=== PATIENT | female | born 1965 | race Caucasian/White ===

== ENCOUNTER 2024-12-06 08:31 | Outpatient (CLI) | payer OTHER, SELFPAY ==
--- OUTSIDE RECORDS SUMMARY | 2024-12-06 08:41 | XMS_ITS | Encounter Summary ---
Author Organization [facility] Facility Care Team Providers Care Route Carrier Name Role Phone Arvind Billingsley MD Primary Care Provider + Arvind Billingsley MD Primary Care Provider + Jeanne Blackwell MD Unavailable Encounter Details Date Type Department Care Team (Latest Contact Info) Description 01/28/2016 Orders Only [facility] ProviderTavia MD [address] [place] [address] Social History Tobacco Use Types Packs/Day Years Used Date Smoking Tobacco: Never Comments Unknown Sex and Gender Information Value Date Recorded Sex Assigned at Not on file 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 Historical Provider Final Res ult documented in this encounter Visit Diagnoses Not on filedocumented in this encounter Care Teams Route Carrier Relationship Specialty Start Date End Date Arvind Billingsley MD [address] [place] [address] PCP - General 05/15/17 Arvind Billingsley MD [address] [place] [address] PCP - General 03/07/17 05/14/17 Jeanne Blackwell MD [address] [address] Referring Physician Gynecology 11/11/22 documented as of this encounter
--- OUTSIDE RECORDS SUMMARY | 2024-12-06 08:41 | XMS_ITS | Clinical Summary ---
Author Organization [facility] Address [facility] [place] [address] Care Team Providers Care Hiv Nurse Name Role Phone Arvind Billingsley MD Primary Care Provider [phone] Allergies Active Allergy Reactions Criticality Noted Date Comments Penicillins Rash,Unknown Medium 06/16/2012 Medications lisinopril-hydroC HLOROthiazide (ZESTORETIC) 20-25 MG tabletIndications :Hypertension Take 1 tablet by mouth daily. Indications: High Blood Pressure Disorder 10/17/19 22 Active nortriptyline (PAMELOR) 75 MG capsule TAKE 2 CAPSULES (150 MG TOTAL) BY MOUTH NIGHTLY FOR MIGRAINES 10/03/19 22 Active pantoprazole EC (PROTONIX) 40 MG tabletIndications :Gastroesophageal Reflux Disease Take 1 tablet (40 mg total) by mouth daily. Indications: Gastroesophageal Reflux Disease 11/21/19 22 Active magnesium oxide (MAG-OX) 400 (240 Mg) MG tabletIndications :Vitamin and/or Mineral Deficiency Take 1 tablet (400 mg total) by mouth daily. Indications: Vitamin and/or Mineral Deficiency 02/05/20 22 Active aspirin EC (ECOTRIN) 81 MG tablet Take 1 tablet (81 mg total) by mouth daily. Active vitamin B-12 (CYANOCOBALAMIN) 500 MCG tablet Take 500 mcg by mouth daily. Active diclofenac EC (VOLTAREN) 75 MG tabletIndications :Primary osteoarthritis of left knee TAKE 1 TABLET BY MOUTH TWICE A DAY 60 tablet 1 05/25/19 23 Active cephALEXin (KEFLEX) 500 MG capsuleIndication s:S/P TKR (total knee replacement), left Take 1 capsule 30 minutes prior to dental procedure, then take 1 capsule every 6 hours until gone #6 6 capsule 12/13/20 23 Active cephALEXin (KEFLEX) 500 MG capsuleIndication s:S/P TKR (total knee replacement), left,Prophylactic antibiotic TAKE ONE (1) 500MG CAPSULE 30-60 MINUTES PRIOR TO DENTAL PROCEDURE/APPOINTME NT. THEN TAKE ONE (1) CAPSULE EVERY SIX (6) HOURS UNTIL GONE. 5 capsule 09/07/19 24 Active cephALEXin (KEFLEX) 500 MG capsule TAKE ONE (1) 500MG CAPSULE 30-60 MINUTES PRIOR TO DENTAL PROCEDURE/APPOINTME NT. THEN TAKE ONE (1) CAPSULE EVERY SIX (6) HOURS UNTIL GONE. 5 capsule 12/29/19 24 Active Active Problems Problem Noted Date Diagnosed Date Postoperative stitch abscess 03/14/2022 Assessment & Plan (03/14/2022 1:23 PM CDT): Begin doxycycline. If no significant improvement over the next 5 days call for reevaluation. Otherwise, we will see her at the 6-week follow-up visit. S/P TKR (total knee replacement), left Overview (02/17/2022): 02/02/2022 Assessment & Plan (08/19/2022 2:26 PM CDT): Will see her back if she is having issues. 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 Happy with her result so far. Follow-up in 3 months. Assessment & Plan (03/14/2022 1:23 PM CDT): Continue with progressive range of motion and strengthening per total knee arthroplasty protocol. Follow-up in 6 weeks Assessment & Plan (02/17/2022 10:07 AM CDT): Continue with progressive range of motion and strengthening per total knee arthroplasty protocol. Patient is transitioning from walker to cane. Transition to outpatient physical therapy at [facility] in [place]. Follow-up in 4 weeks for repeat evaluation and x-ray Primary osteoarthritis of left knee 12/27/2021 Assessment & Plan (01/14/2022 1:38 PM CDT): We discussed the risks, benefits and alternatives. The only thing proven to slow the progression of osteoarthritis is weight loss. Every pound lost relieves 4 to 6 pounds of stress across the knee. We discussed unloading braces. Formal physical therapy to help with flexibility, mobility and strength. We discussed TENS units. Nonsteroidal anti-inflammatories as well as Tylenol and pain medication and their side effects. We discussed steroid versus Visco supplement injection. We discussed eventual total knee arthroplasty. We discussed the risks, benefits and alternatives. We discussed custom cutting blocks, standard instrumentation and medical robot-assisted total knee arthroplasty. We will work with the [employer] robot support line to see if we can get this approved. I do believe there is benefit to Alfredo robot assisted arthroplasty and utilizing press-fit components in a 56-year-old female. All questions were answered. Assessment & Plan (12/27/2021 10:01 PM CDT): We discussed the risks, benefits and alternatives. The only thing proven to slow the progression of osteoarthritis is weight loss. Every pound lost relieves 4 to 6 pounds of stress across the knee. We discussed unloading braces. Formal physical therapy to help with flexibility, mobility and strength. We discussed TENS units. Nonsteroidal anti-inflammatories as well as Tylenol and pain medication and their side effects. We discussed steroid versus Visco supplement injection. We discussed eventual total knee arthroplasty. Failed ibuprofen Failed meloxicam Failed diclofenac Failed physical therapy Failed steroid injection Failed viscosupplementation Pain is interfering with her activities of daily living [id number] on x-ray We discussed standard instrumentation, patient specific cutting blocks and Alfredo robot assisted total knee arthroplasty. After going over the risks, benefits and alternatives patient wants to proceed with Alfredo robot assisted total knee arthroplasty on the left BMI 40.0-44.9, adult 12/27/2021 Assessment & Plan (01/14/2022 1:38 PM CDT): Continue with weight loss Assessment & Plan (12/27/2021 10:00 PM CDT): We discussed the adverse effects of weight on osteoarthritis of the knee. For every 1 pound loss, 4 to 6 pounds of stress is relieved from the knee. We discussed low carbohydrate diet to help with weight loss. 80% of weight loss is through diet. Encounters Date Type Department Care Team Description 10/25/2024 10:56 AM CDT - 10/25/2024 11:59 PM CDT Hospital Encounter [facility] [place] [address] [place] [address] Jeanne Blackwell MD Discharge Disposition: Home or Self Care (Routine Discharge) 10/25/2024 9:25 AM CDT - 10/25/2024 10:55 AM CDT Hospital Encounter [facility] Outpatient [place] [address] Yael Crawford MD Dichsen, Stacie L, PT Discharge Disposition: Home or Self Care (Routine Discharge) 10/25/2024 Travel 09/26/2024 6:26 PM CDT - 09/26/2024 11:59 PM CDT Hospital Encounter [facility] [address] [place] [address] Candi Meza MD Discharge Disposition: Home or Self Care (Routine Discharge) 09/26/2024 Orders Only [facility] [address] [place] [address] Candi Meza MD 09/13/2024 10:24 AM CDT - 09/13/2024 11:59 PM CDT Hospital Encounter [facility] Outpatient [place] [address] [place] [address] Yael Crawford MD Dichsen, Stacie L, PT Discharge Disposition: Home or Self Care (Routine Discharge) 09/13/2024 Travel from Last 3 Months Family History Medical History Relation Comments Arthritis Mother Relation Status Comments Mother Social History Tobacco Use Types Packs/Day Years Used Date Smoking Tobacco: Never Smokeless Tobacco: Never Tobacco Cessation:Counseling Given: Not Answered Comments:na Alcohol Use Standard Drinks/Week Comments Never 0 (1 standard drink = 0.6 oz pur e alcohol) PHQ-2 Answer Date Recorded PHQ-2 Score - If the patient scores above 3, please move on to questions 3-9 0 03/11/2022 Comments No Sex and Gender Information Value Date Recorded Sex Assigned at Female 10/04/2024 11:53 AM CDT Legal Sex Female 7:01 PM CDT Gender Identity Not on file Sexual Orientation Not on file Last Filed Vital Signs Vital Sign Reading Time Taken Comments Blood Pressure 158/91 08/19/2022 1:37 PM CDT Pulse 92 08/19/2022 1:37 PM CDT Temperature 36.3 C (97.3 F) 08/19/2022 1:37 PM CDT Respiratory Rate 18 08/19/2022 1:37 PM CDT Oxygen Saturation 100% 08/19/2022 1:37 PM CDT Inhaled Oxygen Concentration - - Weight 121.5 kg (267 lb 12.8 oz) 08/19/2022 1:37 PM CDT Height 167.6 cm (5' 6) 08/19/2022 1:37 PM CDT Body Mass Index 43.22 08/19/2022 1:37 PM CDT Plan of Treatment Upcoming Encounters Date Type Department Care Team (Late st Contact Info) Description 12/06/2024 10:00 AM CDT Appointment [facility] Outpatient [place] [address] [place] [address] Yael Crawford MD [address] [facility] [address] [place] [address] Aarti Simpson, [place] [address] Health Maintenance Due Date Last Done Comments Colorectal Cancer Screening Colonoscopy (10 Years) 1966 Annual Physical 1969 Hepatitis C 1984 DTaP, Tdap and Td Vaccines (1 - Tdap) 1985 Hepatitis B Vaccines (1 of 3 - 19+ 3-dose series) 1985 Pneumococcal Vaccine: 50+ Years (1 of 1 - PCV) 2016 Cervical Cancer Screening Pap Smear (Age 30 to 64) Every 3 Years 02/18/2020 02/17/2017 Cervical Cancer Screening Pap with HPV Testing (Age 30 to 64) Every 5 Years 02/17/2022 02/17/2017 Cervical Cancer Screening with HPV 02/17/2022 COVID-19 Vaccine ( season) 2024 10/13/2021, 02/11/2021, 05/23/2020, Additional history exists PHQ-2 (Physician [place]) 05/16/2024 Mammogram Screening 10/06/2026 10/06/2024, 08/25/2023, 08/19/2022, Additional history exists Zoster Vaccines Completed 10/01/2018, 07/30/2018 Meningococcal B Vaccine Aged Out No l onger eligible based on patient's age to complete this topic Meningococcal Vaccine Aged Out No danilo skylar eligible based on patient's age to complete this topic RSV Immunizations Under 20 Months Aged Out No longer eligible based on patient's age to complete this topic Goals Goal Patient Goal Type Associated Problems Recent Progress Patient-Stated? Author Safety - demonstrates understanding of home safety measures Lifestyle No Jannet Oh RN Medical Devices Implanted Type Area Industrial Furnace Fabricator Device Identifier Shelf Expiration Date Model / Serial / Lot Component Femoral Triathlon [employer] - [id number] Implanted:Qty : 1 on 02/02/2022 by Jerry Dial DO at [facility] Knee Components Left: Femur [employer] DIV [employer] [id number] 12/24/2026 5517-F-4 01 / / [id number] Baseplate Tibial Triathlon 4 Knee Tritanium - [id number] Implanted:Qty : 1 on 02/02/2022 by Jerry Dial DO at [facility] Knee Components Left: Tibia [employer] DIV [employer] DESIREE [id number] 10/07/2026 5536-B-4 00 / / [id number] Component Patellar 9mm 29mm Asymmetric Triathlon Tritanium Metal Knee Sterile - [id number] Implanted:Qty : 1 on 02/02/2022 by Jerry Dial DO at [facility] Patella Left: Patella [employer] DIV [employer] DESIREE [id number] 12/23/2025 5552-L-2 99 / / [id number] Triathlon X3 Tibial Bearing Insert- Cs Implanted:Qty : 1 on 02/02/2022 by Jerry Dial DO at [facility] Left: Tibia [id number] 10/18/2026 5531-G-4 09-E / / [id number] Procedures Procedure Name Priority Date/Time Associated Diagnosis Comments US PELVIC NON OB COMP TA+TV Routine 10/25/2024 12:10 PM CDT Postmenopausal bleeding URINE BACTERIA CULTURE Routine 09/26/2024 6:26 PM CDT Dysuria URINALYSIS, AUTO, COMPLETE Routine 09/26/2024 6:26 PM CDT Dysuria from Last 3 Months Results * US PELVIC NON OB COMP TA+TV (10/25/2024 12:10 PM CDT) Anatomical Region Laterality Modality Pelvis Ultrasound 10/26/2024 2:48 PM CDT Impressions 10/26/2024 3:01 PM CDT =====IMPRESSION:===== 1. Endometrial thickening at 15 mm, greater than expected for postmenopausal status. Could be endometrial hyperplasia, hormone replacement therapy or polyps but underlying neoplasm is not excluded. Recommend endometrial biopsy. 2. Unremarkable right ovary. 3. Left ovary not visualized. Ordered By: JEANNE BLACKWELL Interpreted By: Roberto Garcia MD, 10/26/2024 2:48 PM Narrative 10/26/2024 3:01 PM CDT [address] [address] EXAMINATION: Ultrasound pelvis EXAM DATE/TIME: 10/25/2024 11:10 AM REASON FOR EXAM: Postmenopausal vaginal bleeding. COMPARISON: None TECHNIQUE: Transabdominal pelvic ultrasound, transvaginal pelvic ultrasound, color Doppler and spectral Doppler analysis. FINDINGS: On transabdominal exam, the uterus measures 9.3 x 4.5 x 6.4 cm. Uterine detail is somewhat obscured. The bladder is not well-distended, suboptimal acoustic window. No large pelvic mass is demonstrated. On transvaginal exam, the uterus measures 8.9 x 4.4 x 5.9 cm. Endometrial complex measures 15 mm thick in the fundal region. Otherwise no discrete endometrial lesion or fluid collection. Myometrium is unremarkable. Visualized cervix is unremarkable. The right ovary measures 2.2 x 1.5 x 1.1 cm and is sonographically unremarkable. Intact right ovarian blood flow is shown with color Doppler and spectral Doppler analysis. The left ovary is not visualized. Procedure Note [place], Roberto Perez MD - 10/26/[address] [address] EXAMINATION: Ultrasound pelvis EXAM DATE/TIME: 10/25/2024 11:10 AM REASON FOR EXAM: Postmenopausal vaginal bleeding. COMPARISON: None TECHNIQUE: Transabdominal pelvic ultrasound, transvaginal pelvicultrasound, color Doppler and spectral Doppler analysis. FINDINGS: On transabdominal exam, the uterus measures 9.3 x 4.5 x 6.4 cm. Uterinedetail is somewhat obscured. The bladder is not well-distended, suboptimalacoustic window. No large pelvic mass is demonstrated. On transvaginal exam, the uterus measures 8.9 x 4.4 x 5.9 cm. Endometrialcomplex measures 15 mm thick in the fundal region. Otherwise no discreteendometrial lesion or fluid collection. Myometrium is unremarkable.Visualized cervix is unremarkable. The right ovary measures 2.2 x 1.5 x1.1 cm and is sonographically unremarkable. Intact right ovarian bloodflow is shown with color Doppler and spectral Doppler analysis. The leftovary is not visualized. =====IMPRESSION:===== 1. Endometrial thickening at 15 mm, greater than expected forpostmenopausal status. Could be endometrial hyperplasia, hormonereplacement therapy or polyps but underlying neoplasm is not excluded.Recommend endometrial biopsy. 2. Unremarkable right ovary. 3. Left ovary not visualized. Ordered By: JEANNE BLACKWELL Interpreted By: Roberto Garcia MD, 10/26/2024 2:48 PM us Jeanne Blackwell MD ULTRASOUND Final Res ult * (ABNORMAL) URINE BACTERIA CULTURE (09/26/2024 6:26 PM CDT) SPEC DESCRIPTION URINE, UNSPECIFIED 09/26/2024 6:27 PM CDT [facility] SPECIAL REQUESTS NO SPECIAL REQUEST 09/26/2024 6:27 PM CDT [facility] CULTURE RESULT 10,000-49,000 COL/ML ENTEROCOCCUS SPECIES (A) 09/29/2024 7:40 AM CDT [facility] URINE SPECIMEN / Unknown 09/26/2024 6:26 PM CDT 09/26/2024 6:28 PM CDT Narrative Organism Antibiotic Method Susceptibility Enterococcus species AMPICILLIN DARIAN (VITEK) <=2: Sensitive Enterococcus species NITROFURANTOIN DARIAN (VITEK) <=16: Sensitive Enterococcus species GENT. SYNERGY SCREEN DARIAN (VITEK) Sensitive Enterococcus species PENICILLIN G DARIAN (VITEK) 8: Sensitive us Candi Meza MD MICROBIOLOGY - GENERAL ORDERABLES Final Result [facility] [address] [place] [address], [place] [phone] [facility] [address] [place] [address], [place] [phone] * (ABNORMAL) URINALYSIS, AUTO, COMPLETE (09/26/2024 6:26 PM CDT) COLOR (U) YELLOW 09/26/2024 6:41 PM CDT [facility] TRANSPARENCY HAZY 09/26/2024 6:41 PM T [facility] SPECIFIC GRAVITY (U) 1.025 1.000 - 1.030 09/26/2024 6:41 PM CDT [facility] U PH 6.0 5.0 - 9.0 09/26/2024 6:41 PM T [facility] LEUKOCYTES (U) TRACE(A) NEGATIVE 09/26/2024 6:41 PM T [facility] NITRITES NEGATIVE NEGATIVE 09/26/2024 6:41 PM T [facility] PROTEIN RANDOM (U) NEGATIVE NEGATIVE 09/26/2024 6:41 PM T [facility] GLUCOSE (U) NEGATIVE NEGATIVE 09/26/2024 6:41 PM T [facility] KETONES MG/DL (U) TRACE(A) NEGATIVE 09/26/2024 6:41 PM T [facility] BILIRUBIN (U) NEGATIVE NEGATIVE 09/26/2024 6:41 PM T [facility] BLOOD (U) TRACE(A) NEGATIVE 09/26/2024 6:41 PM T [facility] WBC/HPF 10-25 0 - 5 /HPF 09/26/2024 6:41 PM T [facility] RBC/HPF 0-5 0 - 5 /HPF 09/26/2024 6:41 PM T [facility] EPI/HPF FEW /HPF 09/26/2024 6:41 PM T [facility] BACTERIA (U) FEW /HPF 09/26/2024 6:41 PM T [facility] URINE SPECIMEN / Unknown 09/26/2024 6:26 PM CDT Candi Meza MD URINE ORDERABLES Final Result [facility] [address] [place] [address], [place] [phone] from Last 3 Months Insurance [employer] Advance Directives * Full Code (Latest Code Status on File) Date Activated Date Inactivated Comments 02/04/2022 10:18 AM * Full Code Date Activated Date Inactivated Comments 02/02/2022 6:23 PM 02/03/2022 5:29 PM Care Teams Hiv Nurse Relationship Specialty Start Date End Date Arvind Billingsley MD [address] [place] [id number] PCP - General INTERNAL MEDICINE 12/24/21
--- OUTSIDE RECORDS SUMMARY | 2024-12-06 08:41 | XMS_ITS | Encounter Summary ---
Author Organization [facility] Address [address] [place] [address] Care Team Providers Care Level Glass Vial Filler Name Role Phone Arvind Billingsley MD Primary Care Provider + Jeanne Blackwell MD Unavailable [phone] Encounter Details Date Type Department Care Team (Late st Contact Info) Description 10/09/2024 Results Follow-Up [facility] Primary Care [address] [place] [address] Arvind Billingsley MD [address] [place], [place] [id number] Screening Mammogram Bilateral W [place] Social History Tobacco Use Types Packs/Day Years Used Date Smoking Tobacco: Never Cigarettes Smokeless Tobacco: Never Alcohol Use Standard Drinks/Week Comments Not Currently 0 (1 standard drink = 0.6 oz pur e alcohol) AUDIT-C Answer Date Recorded Q1: How often do you have a drink containing alcohol? Never 09/20/2024 Q2: How many drinks containi ng alcohol do you have on a typical day when you are drinking? Patient does not drink Q3: How often do you have si x or more drinks on one occasion? 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
--- OUTSIDE RECORDS SUMMARY | 2024-12-06 08:41 | XMS_ITS | Encounter Summary ---
Author Organization [facility] Address [address] [place] [address] Care Team Providers Care Cloth Desizing Range Tender Name Role Phone Arvind Billingsley MD Primary Care Provider [phone] Encounter Details Date Type Department Care Team (Latest Contact Info) Description 03/21/2018 Abstract [facility] , Piedad Tamez MD Social History Tobacco Use Types Packs/Day Years Used Date Smoking Tobacco: Never Assessed Comments Unknown Sex and Gender Information Value Date Recorded Sex Assigned at Female 10/04/2024 11:53 AM CDT Legal Sex Female 7:01 PM CDT Gender Identity Not on file Sexual Orientation Not on file documented as of this encounter Plan of Treatment Upcoming Encounters Date Type Department Care Team (Late st Contact Info) Description 12/06/2024 10:00 AM CDT Appointment [facility] [place] [address] Yael Crawford MD [facility] [address] [place] [address] Aarti Simpson, [place] [address] documented as of this encounter Visit Diagnoses Not on filedocumented in this encounter Care Teams Cloth Desizing Range Tender Relationship Specialty Start Date End Date Arvind Billingsley MD [address] [place] [address] PCP - General INTERNAL MEDICINE 12/24/21 documented as of this encounter
--- OUTSIDE RECORDS SUMMARY | 2024-12-06 08:41 | XMS_ITS | Referral Summary ---
Author Organization [facility] [address] [facility] Address [address] [place] [address] Care Team Providers Care Social Services Manager Name Role Phone Arvind Billingsley MD Primary Care Provider + Jeanne Blackwell MD Unavailable [phone] Encounters Date Type Department Care Team Description 10/24/2024 Telephone [facility] Primary Care [address] [place] [address] Arvind Billingsley MD Med Refill 10/18/2024 10:15 AM CDT Office Visit [facility] [address] [facility] [address] [place] [address] Allyssa Wood NP Obstructive sleep apnea (Primary Dx) 10/09/2024 Results Follow-Up [facility] [address] [place] [phone] Arvind Billingsley MD Screening Mammogram Bilateral W Reagan 10/06/2024 11:00 AM CDT - 10/06/2024 11:59 PM CDT Hospital Encounter [facility] [address] [place] [address] Screening mammogram, encounter for Discharge Disposition: Discharge to home or self care 10/02/2024 Telephone [facility] [address] [place] [address] Arvind Billingsley MD Authorization/Certifi cation; Med Refill 09/20/2024 12:45 PM CDT Office Visit [facility] [address] [place] [address] Arvind Billingsley MD Essential (primary) hypertension (Primary Dx); Pure hypercholesterolemia; Gastro-esophageal reflux disease without esophagitis; Migraine without aura and without status migrainosus, not intractable; Obstructive sleep apnea; Idiopathic peripheral neuropathy; Morbid obesity with BMI of 40.0-44.9, adult (HCC); Vertigo 09/19/2024 Results Follow-Up [facility] [address] [place] [address] Arvind Billingsley MD Comprehensive metabolic panel, Lipid panel from Last 3 Months Allergies Active Allergy Reactions Criticality Noted Date Comments Amoxicillin Rash Medium 02/13/2015 Penicillins Rash Medium 04/12/2018 Medications magnesium gluconate 200 mg tabletIndications:hypom agnesemia Take 1.25 tablets (250 mg total) by mouth daily Active aspirin 81 mg enteric coated tabletIndications:Cereb ral Thromboembolism Prevention Take 1 tablet (81 mg total) by mouth daily 30 tablet 11 03/11/20 22 Active inulin (FIBER GUMMIES ORAL) Active lisinopril-hydroCHLOROt hiazide (ZESTORETIC) 20-25 mg per tabletIndications:Essen tial (primary) hypertension Take 1 tablet by mouth daily 90 tablet 1 09/21/19 25 Active nortriptyline (PAMELOR) 75 mg capsuleIndications:Idio pathic peripheral neuropathy Take 2 capsules (150 mg total) by mouth nightly 180 capsule 1 09/21/19 25 Active atorvastatin (LIPITOR) 10 mg tabletIndications:Pure hypercholesterolemia Take 1 tablet (10 mg total) by mouth daily 90 tablet 1 09/21/[address] (PROTONIX) 40 mg EC tabletIndications:Gastr o-esophageal reflux disease without esophagitis Take 1 tablet (40 mg total) by mouth daily 90 tablet 1 09/21/19 25 Active alpha lipoic acid 600 mg capsule Take 1 capsule (600 mg total) by mouth daily 90 capsule 1 09/21/19 25 Active tirzepatide, weight loss, (Zepbound) 5 mg/0.5 mL pen injector Inject 0.5 mL (5 mg total) under the skin every 7 days 2 mL 5 11/28/19 25 Active tirzepatide, weight loss, (Zepbound) 5 mg/0.5 mL pen injector Inject 0.5 mL (5 mg total) under the skin every 7 days 2 mL 10/25/19 25 025 Disconti nued(Reo rder) Active Problems Problem Noted Date Diagnosed Date Pure hypercholesterolemia 03/24/2023 Assessment & Plan (09/17/2024 12:36 PM CDT): Stable on atorvastatin Assessment & Plan (03/21/2024 12:15 PM TELECINE OPERATOR): Stable on atorvastatin Assessment & Plan (09/27/2023 3:56 PM CDT): Stable on atorvastatin Assessment & Plan (03/24/2023 1:31 PM TELECINE OPERATOR): Stable on atorvastatin Postoperative stitch abscess 03/14/2022 Overview (06/29/2022): Last Assessment & Plan: Begin doxycycline. If no significant improvement over the next 5 days call for reevaluation. Otherwise, we will see her at the 6-week follow-up visit. Vertigo 03/09/2022 Assessment & Plan (09/20/2024 1:00 PM CDT): Recommended starting meclizine 3 times a day PRN to try to control the symptoms. Continue Jose Maria maneuvers. Assessment & Plan (03/09/2022 9:45 AM CDT): Improving. She wants to hold off on meclizine at this time. S/P TKR (total knee replacement), left Overview (06/29/2022): 02/02/2022 Last Assessment & Plan: Continue with progressive range of motion and strengthening per total knee arthroplasty protocol. Patient is transitioning from walker to cane. Transition to outpatient physical therapy at [facility] in [place]. Follow-up in 4 weeks for repeat evaluation and x-ray 02/02/2022 Last Assessment & Plan: Continue with progressive range of motion and strengthening per total knee arthroplasty protocol. Happy with her result so far. Follow-up in 3 months. Numbness and tingling in left arm 09/24/2021 Assessment & Plan (11/12/2021 12:01 PM CDT): Evaluated by hand specialist and she thought it may be Cervical disc disease. Numbness and tingling down the left arm gets worse when she turns her head to the right. Will check MRI of cervical spine. Assessment & Plan (09/24/2021 2:21 PM CDT): Will check MRI of brain. Has history of nonspecific punctate lesions of brain Gait instability 09/24/2021 Assessment & Plan (01/14/2022 8:55 AM CDT): Refer to neurology Assessment & Plan (09/24/2021 2:25 PM CDT): Will check MRI of the brain. Primary osteoarthritis of left knee 08/26/2021 Assessment & Plan (01/14/2022 8:48 AM CDT): Awaiting preop labs for surgical clearance. Would stop aspirin 5 days prior to surgery. Assessment & Plan (09/23/2021 3:22 PM CDT): Follows with orthopedics. Obstructive sleep apnea 03/15/2018 Assessment & Plan (10/18/2024 10:45 AM CDT): Patient continue to wear CPAP in auto titrating range of 5-15 cm water pressure while sleeping. Her DME is [facility]. Assessment & Plan (09/17/2024 12:36 PM CDT): Uses CPAP nightly and benefits from it Assessment & Plan (07/05/2024 1:10 PM TELECINE OPERATOR): Due to ongoing symptoms in the slightly elevated AHI, I have increased the pressure to 8-15 cm water pressure. Denied need for supplies. DME [facility] Assessment & Plan (03/21/2024 12:15 PM TELECINE OPERATOR): Uses CPAP nightly and benefits from it Assessment & Plan (09/27/2023 3:55 PM CDT): Uses CPAP nightly and benefits from it Assessment & Plan (06/30/2023 1:21 PM TELECINE OPERATOR): Due to continued symptoms, the patient will continue CPAP at 5-15 cm water pressure. Denied need for supplies. DME [employer] Assessment & Plan (03/23/2023 12:21 PM TELECINE OPERATOR): Uses CPAP nightly and benefits from it Assessment & Plan (09/16/2022 1:04 PM CDT): Uses CPAP nightly and benefits from it Assessment & Plan (06/29/2022 1:10 PM TELECINE OPERATOR): Will continue with auto titrating CPAP set at 5-20 cm water pressure. Denied need for supplies. DME [employer] Assessment & Plan (01/13/2022 7:01 AM CDT): Uses CPAP nightly and benefits from it Assessment & Plan (09/23/2021 3:21 PM CDT): Uses CPAP nightly and benefits from it Assessment & Plan (06/25/2021 2:55 PM TELECINE OPERATOR): Patient continue to wear her CPAP in auto titrating range of 5-15 cm water pressure while sleeping. Her DME is [facility]. The patient is aware of the recall in has registered her CPAP. The patient denies seeing any dark particles in her hose or water tank. Assessment & Plan (03/31/2021 12:42 PM TELECINE OPERATOR): Uses CPAP nightly and benefits it Assessment & Plan (09/30/2020 12:44 PM CDT): Uses CPAP nightly and benefits from it Assessment & Plan (03/31/2020 1:44 PM TELECINE OPERATOR): Uses CPAP nightly and benefits from it Assessment & Plan (09/24/2019 1:53 PM CDT): Uses CPAP nightly and benefits from it Assessment & Plan (03/21/2019 12:02 PM TELECINE OPERATOR): Using CPAP nightly and benefiting form it. Assessment & Plan (09/14/2018 8:52 AM CDT): Using CPAP nightly and benefiting form it. Morbid obesity with BMI of 40.0-44.9, adult 02/13 Assessment & Plan (09/17/2024 12:37 PM CDT): BMI Follow-up includes: exercise counseling. Assessment & Plan (03/21/2024 12:16 PM TELECINE OPERATOR): BMI Follow-up includes: exercise counseling. Assessment & Plan (09/27/2023 3:57 PM CDT): BMI Follow-up includes: exercise counseling. Assessment & Plan (03/23/2023 12:21 PM TELECINE OPERATOR): BMI Follow-up includes: exercise counseling. Assessment & Plan (09/16/2022 1:04 PM CDT): BMI Follow-up includes: exercise counseling. Assessment & Plan (03/09/2022 9:48 AM CDT): BMI Follow-up includes: exercise counseling Assessment & Plan (01/13/2022 7:01 AM CDT): BMI Follow-up includes: exercise counseling. Assessment & Plan (09/23/2021 3:21 PM CDT): BMI Follow-up includes: exercise counseling. Assessment & Plan (03/31/2021 12:42 PM TELECINE OPERATOR): BMI Follow-up includes: exercise counseling. Assessment & Plan (09/30/2020 12:44 PM CDT): BMI Follow-up includes: exercise counseling. Assessment & Plan (03/31/2020 1:44 PM TELECINE OPERATOR): BMI Follow-up includes: exercise counseling. Assessment & Plan (03/21/2019 12:03 PM TELECINE OPERATOR): BMI Follow-up includes: exercise counseling. Assessment & Plan (09/12/2018 1:27 PM CDT): BMI Follow-up includes: exercise counseling. Esophageal stricture 09/03/2015 Essential (primary) hypertension 09/03/2015 Assessment & Plan (09/17/2024 12:36 PM CDT): Stable on lisinopril hydrochlorothiazide Assessment & Plan (03/21/2024 12:15 PM TELECINE OPERATOR): Stable on lisinopril hydrochlorothiazide Assessment & Plan (09/27/2023 3:55 PM CDT): Stable on lisinopril hydrochlorothiazide Assessment & Plan (03/23/2023 12:20 PM TELECINE OPERATOR): Stable on lisinopril hydrochlorothiazide Assessment & Plan (09/16/2022 1:04 PM CDT): Stable on lisinopril hydrochlorothiazide Assessment & Plan (03/09/2022 9:47 AM CDT): Stable on lisinopril Assessment & Plan (01/13/2022 7:01 AM CDT): Stable on lisinopril Assessment & Plan (09/23/2021 3:21 PM CDT): Stable on lisinopril Assessment & Plan (03/31/2021 12:42 PM TELECINE OPERATOR): Stable on lisinopril Assessment & Plan (09/30/2020 12:43 PM CDT): Stable on lisinopril Assessment & Plan (03/31/2020 1:43 PM TELECINE OPERATOR): Stable on lisinopril Assessment & Plan (09/24/2019 1:52 PM CDT): Stable on lisinopril Assessment & Plan (03/21/2019 12:02 PM TELECINE OPERATOR): Stable on lisinopril Assessment & Plan (09/12/2018 1:26 PM CDT): Stable on lisinopril Gastro-esophageal reflux disease without esophag itis 09/03/2015 Assessment & Plan (09/17/2024 12:36 PM CDT): Stable on pantoprazole Assessment & Plan (03/21/2024 12:15 PM TELECINE OPERATOR): Stable on pantoprazole Assessment & Plan (09/27/2023 3:55 PM CDT): Stable on pantoprazole Assessment & Plan (03/23/2023 12:21 PM TELECINE OPERATOR): Stable on pantoprazole Assessment & Plan (09/16/2022 1:04 PM CDT): Stable on pantoprazole Assessment & Plan (03/09/2022 9:47 AM CDT): Stable on pantoprazole Assessment & Plan (09/23/2021 3:21 PM CDT): Stable on pantoprazole Assessment & Plan (03/31/2021 12:42 PM TELECINE OPERATOR): Stable on pantoprazole Assessment & Plan (09/30/2020 12:44 PM CDT): Stable on pantoprazole Assessment & Plan (03/31/2020 1:43 PM TELECINE OPERATOR): Stable on pantoprazole Assessment & Plan (09/24/2019 1:52 PM CDT): Stable on pantoprazole Assessment & Plan (03/21/2019 12:02 PM TELECINE OPERATOR): Stable on pantoprazole Assessment & Plan (09/12/2018 1:26 PM CDT): Stable on pantoprazole Migraines 09/03/2015 Assessment & Plan (09/17/2024 12:36 PM CDT): Stable on nortriptyline Assessment & Plan (03/21/2024 12:16 PM TELECINE OPERATOR): Stable on nortriptyline Assessment & Plan (09/27/2023 3:55 PM CDT): Stable on nortriptyline Assessment & Plan (03/23/2023 12:21 PM TELECINE OPERATOR): Stable on nortriptyline Assessment & Plan (09/16/2022 1:05 PM CDT): Stable on nortriptyline Peripheral neuropathy 09/03/2015 Assessment & Plan (09/17/2024 12:37 PM CDT): Stable on nortriptyline Assessment & Plan (03/21/2024 12:15 PM TELECINE OPERATOR): Stable on nortriptyline Assessment & Plan (09/27/2023 3:56 PM CDT): Stable on nortriptyline Assessment & Plan (03/23/2023 12:21 PM TELECINE OPERATOR): Stable on nortriptyline Assessment & Plan (09/16/2022 1:04 PM CDT): Stable on nortriptyline Assessment & Plan (03/09/2022 9:49 AM CDT): Stable on nortiptyline Assessment & Plan (01/13/2022 7:04 AM CDT): Stable on nortriptyline Assessment & Plan (09/23/2021 3:22 PM CDT): Stable on nortriptyline Assessment & Plan (03/31/2021 12:42 PM TELECINE OPERATOR): Stable on nortriptyline Assessment & Plan (09/30/2020 12:44 PM CDT): Stable on nortriptyline Assessment & Plan (03/31/2020 1:43 PM TELECINE OPERATOR): Stable on nortriptyline Assessment & Plan (09/27/2019 8:36 AM CDT): Stable nortriptyline Assessment & Plan (05/24/2019 8:30 AM TELECINE OPERATOR): Still not controlled on 100 mg of nortriptyline. Patient requested to try higher dose. Okay to take 75 mg 2 capsules q.h.s. I discussed with patient if will not be effective then can consider decreasing nortriptyline to baseline does and adding Lyrica. Assessment & Plan (03/22/2019 8:30 AM TELECINE OPERATOR): Increase nortriptyline to 100 mg every day. Assessment & Plan (09/12/2018 1:26 PM CDT): Stable on nortriptyline Resolved Problems Problem Noted Date Diagnosed Date Resolved Date Abscess of right foot 05/24/20192019 Assessment & Plan (05/24/2019 8:29 AM TELECINE OPERATOR): Well-healing. Finish Bactrim. Call back if foot will not completely heal after finishing antibiotic. Will need referral to fitness services manager. Chronic left shoulder pain 03/22/2019 1 05/31/2019 Assessment & Plan (03/22/2019 8:40 AM TELECINE OPERATOR): Continue shoulder stretches BMI 40.0-44.9, adult 02/23/2017 019 Assessment & Plan (09/12/2018 1:28 PM CDT): Stress weight loss and exercise. Immunizations Immunization Administration Dates Next Due Influenza, Quadrivalent, Spl it, Intramuscular 01/23/2018,01/28/2017 Influenza, Unspecified 03/22/2024(Deferr ed: Patient decision),03/14/2023,01/14/2022(Deferr ed: Patient decision),03/11/2021,01/29/2020,2018 Pfizer SARS-CoV-2 Monovalent Vaccination (12+ Yrs) PURPLE 05/23/2020,05/02/2020 ZOSTER Recombinant 10/01/2018,07/30/2018 Social History Tobacco Use Types Packs/Day Years Used Date Smoking Tobacco: Never Cigarettes Smokeless Tobacco: Never Tobacco Cessation:Counseling Given: Not Answered Alcohol Use Standard Drinks/Week Comments Not Currently [...] on file Legal Sex Female 12:21 AM TELECINE OPERATOR Gender Identity Not on file Sexual Orientation Not on file 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 Not on file Not on file Last Filed Vital Signs Vital Sign Reading Time Taken Comments Blood Pressure 108/62 10/18/2024 10:20 AM CDT Pulse 105 10/18/2024 10:20 AM CDT Temperature 36.1 C (97 F) 10/18/2024 10:20 AM CDT Respiratory Rate 21 10/18/2024 10:20 AM CDT Oxygen Saturation 98% 10/18/2024 10:20 AM CDT Inhaled Oxygen Concentration - - Weight 119.3 kg (263 lb) 10/18/2024 10:20 AM CDT Height 167.6 cm (5' 6) 10/18/2024 10:20 AM CDT Body Mass Index 42.45 10/18/2024 10:20 AM CDT Plan of Treatment Not on file Procedures Procedure Name Priority Date/Time Associated Diagnosis Comments SCREENING MAMMOGRAM BILATERAL W REAGAN Schedule Routine, Read Routine (OP Routine) 10/06/2024 11:12 AM CDT Screening mammogram, encounter for LIPID PANEL Routine 09/18/2024 11:02 AM CDT Pure hypercholesterolemia COMPREHENSIVE METABOLIC PANEL Routine 09/18/2024 11:02 AM CDT Essential (primary) hypertension Pure hypercholesterolemia COLONOSCOPY Routine 08/16/2024 6:55 AM CDT from Last 3 Months or Most Recently Relevant to Health Maintenance Results * Screening Mammogram Bilateral W Reagan (10/06/2024 11:12 AM CDT) Anatomical Region Laterality Modality Breast Bilateral Mammography Impressions 10/09/2024 9:27 AM CDT Bilateral No evidence of malignancy in either breast. OVERALL BI-RADS FINAL ASSESSMENT: 2 - Benign RECOMMENDATION: Recommend bilateral annual screening mammography. Narrative 10/09/2024 9:27 AM CDT EXAMINATION: Screening Mammogram Bilateral W Reagan: 10/06/2024 COMPARISON: Relevant prior studies available at the time of interpretation were reviewed. TECHNIQUE: Mammography was performed with 2D and digital breast tomosynthesis (DBT) images. CAD was utilized. BREAST PARENCHYMAL COMPOSITION: The breasts are heterogeneously dense, which may obscure small masses. FINDINGS: There are benign appearing calcifications and benign appearing masses in both breasts, without suspicious change. There are unchanged biopsy marker clips in the left breast. There is no new suspicious finding in either breast on mammogram. us Self Screening Mammogram IMG MAMMO PROCEDURES Fi nal Result * Lipid panel (09/18/2024 11:02 AM CDT) Cholesterol 146 <200 mg/dL [facility] HDL 52 > OR = 50 mg/dL [facility] Triglycerides 92 <150 mg/dL [facility] LDL 76 mg/dL (calc) [facility] Comment: Reference range: <100 Desirable range <100 mg/dL for primary prevention; <70 mg/dL for patients with CHD or diabetic patients with > or = 2 CHD risk factors. LDL-C is now calculated using the Matt-Hernandez calculation, which is a validated novel method providing better accuracy than the Friedewald equation in the estimation of LDL-C. Matt WISEMAN et al. CARLI. 2013;310(19): 1176-0913 (http://education.iPointer.Liveclubs/faq/SON328) Chol/HDL ratio 2.8 <5.0 (calc) [facility] Non-HDL, (LDL+VLDL) 94 <130 mg/dL (calc) [facility] Comment: For patients with diabetes plus 1 major ASCVD risk factor, treating to a non-HDL-C goal of <100 mg/dL (LDL-C of <70 mg/dL) is considered a therapeutic option. Blood 09/18/2024 11:0 2 AM CDT 09/18/2024 11:03 AM CDT Narrative [facility] - 09/19/2024 4:18 AM CDT FASTING:YES FASTING: YES us Arvind Billingsley MD LAB BLOOD ORDERABLES Fin al Result [facility] [address] [id number] * Comprehensive metabolic panel (09/18/2024 11:02 AM CDT) Glucose 92 65 - 99 mg/dL [facility] Comment: Fasting reference interval BUN 23 7 - 25 mg/dL [facility] Creatinine 0.75 0.50 - 1.03 mg/dL [facility] eGFR 92 > OR = 60 mL/min/1.7 3m2 [facility] BUN/creat ratio SEE NOTE: 6 - (calc) [facility] Comment: Not Reported: BUN and Creatinine are within reference range. Sodium 137 135 - 146 mmol/L [facility] Potassium, pl 4.2 3.5 - 5.3 mmol/L [facility] Chloride 99 98 - 110 mmol/L [facility] CO2 28 20 - 32 mmol/L [facility] Calcium 9.4 8.6 - 10.4 mg/dL [facility] Protein, sr 7.1 6.1 - 8.1 g/dL [facility] Albumin 4.1 3.6 - 5.1 g/dL [facility] GLOBULIN 3.0 1.9 - 3.7 g/dL (calc) [facility] Alb/glob ratio 1.4 1.0 - 2.5 (calc) [facility] Bilirubin, total 0.4 0.2 - 1.2 mg/dL [facility] Alk phos 124 37 - 153 U/L [facility] AST 13 10 - 35 U/L [facility] ALT (SGPT) 15 6 - 29 U/L [facility] Blood 09/18/2024 11:0 2 AM CDT 09/18/2024 11:03 AM CDT Narrative [facility] - 09/19/2024 4:18 AM CDT FASTING:YES FASTING: YES Arvind Billingsley MD LAB BLOOD ORDERABLES Fin al Result [facility] [address] [id number] * Colonoscopy (08/16/2024 6:55 AM CDT) Anatomical Region Laterality Modality Other Historical Provider MD ENDOSCOPY PROCEDURES Susie l Result from Last 3 Months or Most Recently Relevant to Health Maintenance Insurance [facility] Care Teams Social Services Manager Relationship Specialty Start Date End Date Arvind Billingsley MD [address] [place] [address] PCP - General 05/15/17 Jeanne Blackwell MD [address] [address] Referring Physician Gynecology 11/11/22
--- OUTSIDE RECORDS SUMMARY | 2024-12-06 08:41 | XMS_ITS | Encounter Summary ---
Author Organization [facility] Care Team Providers Care Chiropractor Assistant Name Role Phone Arvind Billingsley MD Primary Care Provider + Jeanne Blackwell MD Unavailable Encounter Details Date Type Department Care Team (Latest Contact Info) Description 04/12/2018 Orders Only [facility]INCON[facility] Provider, MD Tavia [address] [place] [id number] Social History Tobacco Use Types Packs/Day Years Used Date Smoking Tobacco: Never Comments Unknown Sex and Gender Information Value Date Recorded Sex Assigned at Not on file Legal Sex Female 12:21 AM REGIONAL ENGAGEMENT CONSULTANT Gender Identity Not on file Sexual Orientation Not on file documented as of this encounter Plan of Treatment Not on file documented as of this encounter Procedures Procedure Name Priority Date/Time Associated Diagnosis Comments PROCEDURE - RESULT 04/13/2018 12 :00 AM REGIONAL ENGAGEMENT CONSULTANT SCAN - PATHOLOGY 04/12/2018 12:0 0 AM REGIONAL ENGAGEMENT CONSULTANT documented in this encounter Results * PROCEDURE - RESULT (04/13/2018 12:00 AM REGIONAL ENGAGEMENT CONSULTANT) Narrative 04/13/2018 12:00 AM REGIONAL ENGAGEMENT CONSULTANT Ordered by an unspecified provider. Historical Provider Final Res ult * SCAN - PATHOLOGY (04/12/2018 12:00 AM REGIONAL ENGAGEMENT CONSULTANT) Narrative 04/12/2018 12:00 AM REGIONAL ENGAGEMENT CONSULTANT Ordered by an unspecified provider. us Historical Provider MD Final Res ult documented in this encounter Visit Diagnoses Not on filedocumented in this encounter Care Teams Chiropractor Assistant Relationship Specialty Start Date End Date Arvind Billingsley MD [address] [place] [address] PCP - General 05/15/17 Jeanne Blackwell MD [address] [address] Referring Physician Gynecology 11/11/22 documented as of this encounter
--- OUTSIDE RECORDS SUMMARY | 2024-12-06 08:41 | XMS_ITS | Clinical Summary ---
Author Organization [place] [id number] Address [address] [place] [address] Care Team Providers Care Machine Design Checker Name Role Phone Arvind Billingsley MD Primary Care Provider + Jeanne Blackwell MD Unavailable [phone] Allergies Active Allergy Reactions Criticality Noted Date [...] atorvastatin Assessment & Plan (03/21/2024 12:15 PM ARBORICULTURE INSTRUCTOR): Stable on atorvastatin Assessment & Plan (09/27/2023 3:56 PM CDT): Stable on atorvastatin Assessment & Plan (03/24/2023 1:31 PM ARBORICULTURE INSTRUCTOR): Stable on atorvastatin Postoperative stitch abscess 03/14/2022 [...] time. S/P TKR (total knee replacement), left 2 Overview (06/29/2022): 02/02/2022 Last Assessment & Plan: Continue with progressive range of motion and strengthening per total knee arthroplasty protocol. Patient is transitioning from walker to cane. Transition to outpatient physical therapy at [facility] in [place]. Follow-up in 4 weeks for repeat evaluation [...] it Assessment & Plan (07/05/2024 1:10 PM ARBORICULTURE INSTRUCTOR): Due to ongoing symptoms in the slightly elevated AHI, I have increased the pressure to 8-15 cm water pressure. Denied need for supplies. DME adapt Assessment & Plan (03/21/2024 12:15 PM ARBORICULTURE INSTRUCTOR): Uses CPAP nightly and benefits from it Assessment & Plan (09/27/2023 3:55 PM CDT): Uses CPAP nightly and benefits from it Assessment & Plan (06/30/2023 1:21 PM ARBORICULTURE INSTRUCTOR): Due to continued symptoms, the patient will continue CPAP at 5-15 cm water pressure. Denied need for supplies. DME adapt Assessment & Plan (03/23/2023 12:21 PM ARBORICULTURE INSTRUCTOR): Uses CPAP nightly and benefits from it Assessment & Plan (09/16/2022 1:04 PM CDT): Uses CPAP nightly and benefits from it Assessment & Plan (06/29/2022 1:10 PM ARBORICULTURE INSTRUCTOR): Will continue with auto titrating CPAP set at 5-20 cm water pressure. Denied need for supplies. DME adapt Assessment & Plan (01/13/2022 7:01 AM CDT): Uses CPAP nightly and benefits from it Assessment & Plan (09/23/2021 3:21 PM CDT): Uses CPAP nightly and benefits from it Assessment & Plan (06/25/2021 2:55 PM ARBORICULTURE INSTRUCTOR): Patient continue to wear her CPAP in auto titrating range of 5-15 cm water pressure while sleeping. Her DME is [facility]. The patient is aware of the recall in has registered her CPAP. The patient denies seeing any dark particles in her hose or water tank. Assessment & Plan (03/31/2021 12:42 PM ARBORICULTURE INSTRUCTOR): Uses CPAP nightly and benefits it Assessment & Plan (09/30/2020 12:44 PM CDT): Uses CPAP nightly and benefits from it Assessment & Plan (03/31/2020 1:44 PM ARBORICULTURE INSTRUCTOR): Uses CPAP nightly and benefits from it Assessment & Plan (09/24/2019 1:53 PM CDT): Uses CPAP nightly and benefits from it Assessment & Plan (03/21/2019 12:02 PM ARBORICULTURE INSTRUCTOR): Using CPAP nightly and benefiting form it. Assessment & Plan (09/14/2018 8:52 AM CDT): Using CPAP nightly and benefiting form it. Morbid obesity with BMI of 40.0-44.9, adult 02/13 Assessment & Plan (09/17/2024 12:37 PM CDT): BMI Follow-up includes: exercise counseling. Assessment & Plan (03/21/2024 12:16 PM ARBORICULTURE INSTRUCTOR): BMI Follow-up includes: exercise counseling. Assessment & Plan (09/27/2023 3:57 PM CDT): BMI Follow-up includes: exercise counseling. Assessment & Plan (03/23/2023 12:21 PM ARBORICULTURE INSTRUCTOR): BMI Follow-up includes: exercise counseling. Assessment & Plan (09/16/2022 1:04 PM CDT): BMI Follow-up includes: exercise counseling. Assessment & Plan (03/09/2022 9:48 AM CDT): BMI Follow-up includes: exercise counseling Assessment & Plan (01/13/2022 7:01 AM CDT): BMI Follow-up includes: exercise counseling. Assessment & Plan (09/23/2021 3:21 PM CDT): BMI Follow-up includes: exercise counseling. Assessment & Plan (03/31/2021 12:42 PM ARBORICULTURE INSTRUCTOR): BMI Follow-up includes: exercise counseling. Assessment & Plan (09/30/2020 12:44 PM CDT): BMI Follow-up includes: exercise counseling. Assessment & Plan (03/31/2020 1:44 PM ARBORICULTURE INSTRUCTOR): BMI Follow-up includes: exercise counseling. Assessment & Plan (03/21/2019 12:03 PM ARBORICULTURE INSTRUCTOR): BMI Follow-up includes: exercise counseling. Assessment & Plan (09/12/2018 1:27 PM CDT): BMI Follow-up includes: exercise counseling. Esophageal stricture 09/03/2015 Essential (primary) hypertension 09/03/2015 Assessment & Plan (09/17/2024 12:36 PM CDT): Stable on lisinopril hydrochlorothiazide Assessment & Plan (03/21/2024 12:15 PM ARBORICULTURE INSTRUCTOR): Stable on lisinopril hydrochlorothiazide Assessment & Plan (09/27/2023 3:55 PM CDT): Stable on lisinopril hydrochlorothiazide Assessment & Plan (03/23/2023 12:20 PM ARBORICULTURE INSTRUCTOR): Stable on lisinopril hydrochlorothiazide Assessment & Plan (09/16/2022 1:04 PM CDT): Stable on lisinopril hydrochlorothiazide Assessment & Plan (03/09/2022 9:47 AM CDT): Stable on lisinopril Assessment & Plan (01/13/2022 7:01 AM CDT): Stable on lisinopril Assessment & Plan (09/23/2021 3:21 PM CDT): Stable on lisinopril Assessment & Plan (03/31/2021 12:42 PM ARBORICULTURE INSTRUCTOR): Stable on lisinopril Assessment & Plan (09/30/2020 12:43 PM CDT): Stable on lisinopril Assessment & Plan (03/31/2020 1:43 PM ARBORICULTURE INSTRUCTOR): Stable on lisinopril Assessment & Plan (09/24/2019 1:52 PM CDT): Stable on lisinopril Assessment & Plan (03/21/2019 12:02 PM ARBORICULTURE INSTRUCTOR): Stable on lisinopril Assessment & Plan (09/12/2018 1:26 PM CDT): Stable on lisinopril Gastro-esophageal reflux disease without esophag itis 09/03/2015 Assessment & Plan (09/17/2024 12:36 PM CDT): Stable on pantoprazole Assessment & Plan (03/21/2024 12:15 PM ARBORICULTURE INSTRUCTOR): Stable on pantoprazole Assessment & Plan (09/27/2023 3:55 PM CDT): Stable on pantoprazole Assessment & Plan (03/23/2023 12:21 PM ARBORICULTURE INSTRUCTOR): Stable on pantoprazole Assessment & Plan (09/16/2022 1:04 PM CDT): Stable on pantoprazole Assessment & Plan (03/09/2022 9:47 AM CDT): Stable on pantoprazole Assessment & Plan (09/23/2021 3:21 PM CDT): Stable on pantoprazole Assessment & Plan (03/31/2021 12:42 PM ARBORICULTURE INSTRUCTOR): Stable on pantoprazole Assessment & Plan (09/30/2020 12:44 PM CDT): Stable on pantoprazole Assessment & Plan (03/31/2020 1:43 PM ARBORICULTURE INSTRUCTOR): Stable on pantoprazole Assessment & Plan (09/24/2019 1:52 PM CDT): Stable on pantoprazole Assessment & Plan (03/21/2019 12:02 PM ARBORICULTURE INSTRUCTOR): Stable on pantoprazole Assessment & Plan (09/12/2018 1:26 PM CDT): Stable on pantoprazole Migraines 09/03/2015 Assessment & Plan (09/17/2024 12:36 PM CDT): Stable on nortriptyline Assessment & Plan (03/21/2024 12:16 PM ARBORICULTURE INSTRUCTOR): Stable on nortriptyline Assessment & Plan (09/27/2023 3:55 PM CDT): Stable on nortriptyline Assessment & Plan (03/23/2023 12:21 PM ARBORICULTURE INSTRUCTOR): Stable on nortriptyline Assessment & Plan (09/16/2022 1:05 PM CDT): Stable on nortriptyline Peripheral neuropathy 09/03/2015 Assessment & Plan (09/17/2024 12:37 PM CDT): Stable on nortriptyline Assessment & Plan (03/21/2024 12:15 PM ARBORICULTURE INSTRUCTOR): Stable on nortriptyline Assessment & Plan (09/27/2023 3:56 PM CDT): Stable on nortriptyline Assessment & Plan (03/23/2023 12:21 PM ARBORICULTURE INSTRUCTOR): Stable on nortriptyline Assessment & Plan (09/16/2022 1:04 PM CDT): Stable on nortriptyline Assessment & Plan (03/09/2022 9:49 AM CDT): Stable on nortiptyline Assessment & Plan (01/13/2022 7:04 AM CDT): Stable on nortriptyline Assessment & Plan (09/23/2021 3:22 PM CDT): Stable on nortriptyline Assessment & Plan (03/31/2021 12:42 PM ARBORICULTURE INSTRUCTOR): Stable on nortriptyline Assessment & Plan (09/30/2020 12:44 PM CDT): Stable on nortriptyline Assessment & Plan (03/31/2020 1:43 PM ARBORICULTURE INSTRUCTOR): Stable on nortriptyline Assessment & Plan (09/27/2019 8:36 AM CDT): Stable nortriptyline Assessment & Plan (05/24/2019 8:30 AM ARBORICULTURE INSTRUCTOR): Still not controlled on 100 mg of nortriptyline. Patient requested to try higher dose. Okay to take 75 mg 2 capsules q.h.s. I discussed with patient if will not be effective then can consider decreasing nortriptyline to baseline does and adding Lyrica. Assessment & Plan (03/22/2019 8:30 AM ARBORICULTURE INSTRUCTOR): Increase nortriptyline to 100 mg every day. Assessment & Plan (09/12/2018 1:26 PM CDT): Stable on nortriptyline Resolved Problems Problem Noted Date Diagnosed Date Resolved Date Abscess of right foot 05/24/20192019 Assessment & Plan (05/24/2019 8:29 AM ARBORICULTURE INSTRUCTOR): Well-healing. Finish Bactrim. Call back if foot will not completely heal after finishing antibiotic. Will need referral to chief recordist. Chronic left shoulder pain 03/22/2019 1 05/31/2019 Assessment & Plan (03/22/2019 8:40 AM ARBORICULTURE INSTRUCTOR): Continue shoulder stretches BMI 40.0-44.9, adult 02/23/2017 019 Assessment & Plan (09/12/2018 1:28 PM CDT): Stress weight loss and exercise. Encounters Date Type Department Care Team Description 10/24/2024 Telephone [facility] [address] [place] [address] Arvind Billingsley MD Med Refill 10/18/2024 10:15 AM CDT Office Visit [facility] Medical [facility] [address] [place] [address] Allyssa Wood NP Obstructive sleep apnea (Primary Dx) 10/09/2024 Results Follow-Up [facility] [address] [place] [phone] Arvind Billingsley MD Screening Mammogram Bilateral W Reagan 10/06/2024 11:00 AM CDT - 10/06/2024 11:59 PM CDT Hospital Encounter [facility] [address] [place] [address] Screening mammogram, encounter for Discharge Disposition: Discharge to home or self care 10/02/2024 Telephone [facility] [address] [place] [address] Arvind Billingsley MD Authorization/Certifi cation; Med Refill 09/20/2024 12:45 PM CDT Office Visit [facility] [address] [place] [address] Arvind Billingsley MD Essential (primary) hypertension (Primary Dx); Pure hypercholesterolemia; Gastro-esophageal reflux disease without esophagitis; Migraine without aura and without status migrainosus, not intractable; Obstructive sleep apnea; Idiopathic peripheral neuropathy; Morbid obesity with BMI of 40.0-44.9, adult (HCC); Vertigo 09/19/2024 Results Follow-Up [facility] [address] [place] [address] Arvind Billingsley MD Comprehensive metabolic panel, Lipid panel from Last 3 Months Immunizations Immunization Administration Dates Next Due Influenza, Quadrivalent, Spl it, Intramuscular 01/23/2018,01/28/2017 Influenza, Unspecified 03/22/2024(Deferr ed: Patient decision),03/14/2023,01/14/2022(Deferr ed: Patient decision),03/11/2021,01/29/2020,2018 Pfizer SARS-CoV-2 Monovalent Vaccination (12+ Yrs) PURPLE 05/23/2020,05/02/2020 ZOSTER Recombinant 10/01/2018,07/30/2018 Surgical History Surgery Date Site/Laterality Comments CHOLECYSTECTOMY 05/16/1997 - 05/15/1998 ESOPHAGEAL DILATION 2011 & 2019 ESOPHAGEAL DILATION COLONOSCOPY 07/12/2019 ESOPHAGOGASTRODUODENOSCOPY 07/12/2019 BREAST BIOPSY 04/12/2018 Left BREAST BIOPSY 02/13/2015 Left ENDOVENOUS ABLATION SAPHENOU S VEIN W/ LASER Right JOINT REPLACEMENT 02/02/2022 Medical History Medical History Date Comments Essential hypertension Gastro-esophageal reflux disease without esophag itis Migraines Peripheral neuropathy Esophageal stricture Hypertension Idiopathic peripheral neuropathy Cataract 2020 Family History Medical History Relation Name Comments Hyperlipidemia Father Don Arthritis Mother Joycelyn Hypothyroidism Mother Joycelyn Breast cancer Neg Hx Relation Name Status Comments Father Don Alive Mother Joycelyn Alive Social History Tobacco Use Types Packs/Day Years [...] on file Legal Sex Female 12:21 AM ARBORICULTURE INSTRUCTOR Gender Identity Not on file Sexual Orientation Not on file 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 Not on file Not on file Obstetrics History Para Term AB IAB SAB Ectopic Multiple Livin g Live Births 3 3 3 Date Outcome GA Total Labor Labor/2nd/3rd Weight Sex Type Anes PTL Seble A1 A5 Name Clin Term Term Term Last Filed Vital Signs Vital Sign Reading [...] 10/18/2024 10:20 AM CDT Plan of Treatment Health Maintenance Due Date Last Done Comments Cervical Cancer Screening 1966 Hepatitis C Screening 1966 DTaP/Tdap/Td Vaccine (1 - Tdap) 1977 Hepatitis B Screening 1984 Regular Well Visit/Exam 18-64 1984 Covid-19 Vaccine ( season) 2024 10/13/2021, 02/11/2021, 05/23/2020, Additional history exists Influenza Vaccine (#1) 2025 , 03/11/2021, 01/29/2020, Additional history exists Depression Screening 09/20/2025 09/20/2024, 09/29/2023, 09/16/2022, Additional history exists Breast Cancer Screening-Mammogram 10/06/2025 10/06/2024, 08/25/2023, 08/19/2022, Additional history exists Colon Cancer Screening-Colonoscopy 08/16/2029 08/16/2024, 07/12/2019 Zoster Vaccine Completed 10/01/2018, 07/30/2018 Colon Cancer Screening-CT Colonography Discontinued 08/16/2024, 07/12/2019 Colon Cancer Screening-DNA Stool Discontinued 08/16/2024, 07/12/2019 Colon Cancer Screening-FIT Discontinued 08/16/2024, Colon Cancer Screening-Sigmoidoscopy Discontinued 08/16/2024, 07/12/2019 Pneumococcal vaccine <65 Aged Out No longer eligible based on patient's age to complete this topic Procedures Procedure Name Priority Date/Time Associated Diagnosis [...] equation in the estimation of LDL-C. Matt SS et al. CARLI. 2013;310(19): 9450-2510 (http://education.Gummii/faq/IMY646) Chol/HDL ratio 2.8 <5.0 (calc) [facility] [...] BLOOD ORDERABLES Fin al Result [facility] [id number] [address] * Comprehensive metabolic panel (09/18/2024 11:02 AM CDT) Glucose 92 65 - 99 mg/dL [facility] Comment: Fasting reference interval BUN 23 7 - 25 mg/dL [facility] Creatinine 0.75 0.50 - 1.03 mg/dL [facility] eGFR 92 > OR = 60 mL/min/1.7 3m2 [facility] BUN/creat ratio SEE NOTE: 6 - 22 (calc) [facility] Comment: Not Reported: [...] BLOOD ORDERABLES Fin al Result [facility] [address] [place] [address] * Colonoscopy (08/16/2024 6:55 AM CDT) Anatomical Region Laterality Modality Other us Historical Provider ENDOSCOPY PROCEDURES Susie l Result from Last 3 Months or Most Recently Relevant to Health Maintenance [place] [address] [facility] Care Teams Machine Design Checker Relationship Specialty Start Date End Date Arvind Billingsley MD [address] [place] [address] PCP - General 05/15/17 Jeanne Blackwell MD [address] [address] Referring Physician Gynecology 11/11/22
[2024-12-06 09:39] LABS: Anion Gap 9 mmol/L (4-12); Blood Urea Nitrogen 26 mg/dL (7-17); Calcium 9.2 mg/dL (8.4-10.2); Carbon Dioxide 27 mmol/L (22-30); Chloride 101 mmol/L (98-107); Estimated Glomerular Filt Rate 53; Glucose 93 mg/dL (65-110); Potassium 3.6 mmol/L (3.4-5.0); Sodium 137 mmol/L (137-145)
== END 2024-12-06 08:32 | disposition home or self-care (01) ==
LOC: ANHSURGERY 08:36
PROVIDERS: Anesthesiology; PCP Internal Medicine; Visit Provider Obstetrics & Gynecology Gynecology
DX: Z79.899 Other long term (current) drug therapy (principal)
CPT/HCPCS: 36415; 80048

== ENCOUNTER 2024-12-10 00:48 | Day surgery (SDC) | payer OTHER, SELFPAY ==
[2024-12-04 09:33] VITALS: BMI 40.4
--- NOTE | 2024-12-04 09:41 | PC.NURSE ---
Addendum entered by Philip Hickman RN 12/05/24 11:18: Patient instructed to hold Zepbound until after surgery. Original Note: Report to the Outpatient Waiting Room, entrance under the green pavilion located off [facility], at time _0600_ on date _[id number]_. Planned Procedure Time: _0730_.? Time changes happen often and if your time is changed the preop area will call you the afternoon before. - You and your visitor will be asked to self-screen and do not enter if you have any COVID symptoms. Please call surgeon if you need to reschedule. - A mask is optional within the hospital at this time. Patients may have clear liquids (water, carbonated beverages, clear teas, apple juice) until 3 hours prior to surgery with a maximum of 20 ounces. - No food from midnight until time of surgery and no smoking, or chewing tobacco (or any form of nicotine). No chewing gum, candy or mints. Take only the following medications with a SIP of water on the morning of surgery: ___None DO NOT STOP ANY OF YOUR OTHER PRESCRIPTION MEDICATIONS PRIOR TO SURGERY EXCEPT THE FOLLOWING Hold all vitamins and supplements for 3 days per anesthesiologist. Medications to discontinue per physician Patient says she is stopping her aspirin. Date to take last dose Please no make-up, nail marshallese, hairspray, perfume, deodorant, or body powder the day of surgery.? No jewelry (including any body piercings) or valuables the day of surgery, leave them at home.? Please take a shower or bath the night before, or the morning of, surgery with an antibacterial soap.? Wear comfortable, loose fitting clothing. - Jewelry must be removed prior to entering the operating room.? Rings and piercings that are not removed may be cut off. - The hospital will not accept responsibility for valuables.? - Please leave all valuables, including medications, at home the day of surgery. If you are going home after surgery, a licensed utility worker driver must drive you home.? - NO public transportation without another adult if you receive anesthesia. - We recommend that an adult stay with you for 24 hours following discharge. - We also recommend that you do not drive, make important decision, drink alcoholic beverages, or take any drugs that were not prescribed by your health care provider for at least 24 hours after your discharge time. Follow any additional instructions given to you from your surgeon. Telephone instructions given to __Debra___and asked if any additional questions and then verbalized understanding. Patient advised to call surgeon office or pre surgery nurse liaison [phone] if any additional questions.
--- OUTSIDE RECORDS SUMMARY | 2024-12-10 00:50 | XMS_ITS | Encounter Summary ---
Author Organization [facility] Facility Care Team Providers Care Establishment Guide Name Role Phone Arvind Billingsley MD Primary Care Provider + Jeanne Blackwell MD Unavailable [phone] Encounter Details Date Type Department Care Team (Latest Contact Info) Description 04/12/2018 Orders Only [facility] Provider, MD Tavia [address] [place] [id number] Social History Tobacco Use Types Packs/Day Years Used Date Smoking Tobacco: Never Comments Unknown Sex and Gender Information Value Date Recorded Sex Assigned at Not on file Legal Sex Female 12:21 AM SEISMOMETER OPERATOR Gender Identity Not on file Sexual Orientation Not on file documented as of this encounter Plan of Treatment Not on file documented as of this encounter Procedures Procedure Name Priority Date/Time Associated Diagnosis Comments PROCEDURE - RESULT 04/13/2018 12 :00 AM SEISMOMETER OPERATOR SCAN - PATHOLOGY 04/12/2018 12:0 0 AM SEISMOMETER OPERATOR documented in this encounter Results * PROCEDURE - RESULT (04/13/2018 12:00 AM SEISMOMETER OPERATOR) Narrative 04/13/2018 12:00 AM SEISMOMETER OPERATOR Ordered by an unspecified provider. Historical Provider Final Res ult * SCAN - PATHOLOGY (04/12/2018 12:00 AM SEISMOMETER OPERATOR) Narrative 04/12/2018 12:00 AM SEISMOMETER OPERATOR Ordered by an unspecified provider. us Historical Provider MD Final Res ult documented in this encounter Visit Diagnoses Not on filedocumented in this encounter Care Teams Establishment Guide Relationship Specialty Start Date End Date Arvind Billingsley MD [address] [place] [address] PCP - General 05/15/17 Jeanne Blackwell MD [address] [address] Referring Physician Gynecology 11/11/22 documented as of this encounter
--- OUTSIDE RECORDS SUMMARY | 2024-12-10 00:50 | XMS_ITS | Referral Summary ---
Author Organization [facility] [address] [facility] Address [address] [place] [address] Care Team Providers Care Repair Department Manager Name Role Phone Arvind Billingsley MD Primary Care Provider + Jeanne Blackwell MD Unavailable [phone] Encounters Date Type Department Care Team Description 10/24/2024 Telephone [facility] Primary Care [address] [place] [address] Arvind Billingsley MD Med Refill 10/18/2024 10:15 AM CDT Office Visit [facility] [address] [place] [address] Allyssa Wood NP Obstructive sleep apnea (Primary Dx) 10/09/2024 Results Follow-Up [facility] [address] [place] [id number] Arvind Billingsley MD Screening Mammogram Bilateral W Reagan 10/06/2024 11:00 AM CDT - 10/06/2024 11:59 PM CDT Hospital Encounter [facility] [address] [place] [address] Screening mammogram, encounter for Discharge Disposition: Discharge to home or self care 10/02/2024 Telephone [facility] [address] [place] [address] Arvind Billingsley MD Authorization/Certifi cation; Med Refill 09/20/2024 12:45 PM CDT Office Visit [facility] [address] [place] [address] Arvind Billingsley MD Essential (primary) hypertension (Primary Dx); Pure hypercholesterolemia; Gastro-esophageal reflux disease without esophagitis; Migraine without aura and without status migrainosus, not intractable; Obstructive sleep apnea; Idiopathic peripheral neuropathy; Morbid obesity with BMI of 40.0-44.9, adult (HCC); Vertigo 09/19/2024 Results Follow-Up [facility] [address] [place] [address] Arvind Billingsley MD Comprehensive metabolic panel, Lipid [...] atorvastatin Assessment & Plan (03/21/2024 12:15 PM CLOTHING MANAGER): Stable on atorvastatin Assessment & Plan (09/27/2023 3:56 PM CDT): Stable on atorvastatin Assessment & Plan (03/24/2023 1:31 PM CLOTHING MANAGER): Stable on atorvastatin Postoperative stitch abscess 03/14/2022 [...] cane. Transition to outpatient physical therapy at [facility] in [place]. Follow-up in 4 weeks for repeat evaluation [...] it Assessment & Plan (07/05/2024 1:10 PM CLOTHING MANAGER): Due to ongoing symptoms in the slightly elevated AHI, I have increased the pressure to 8-15 cm water pressure. Denied need for supplies. DME adapt Assessment & Plan (03/21/2024 12:15 PM CLOTHING MANAGER): Uses CPAP nightly and benefits from it Assessment & Plan (09/27/2023 3:55 PM CDT): Uses CPAP nightly and benefits from it Assessment & Plan (06/30/2023 1:21 PM CLOTHING MANAGER): Due to continued symptoms, the patient will continue CPAP at 5-15 cm water pressure. Denied need for supplies. DME adapt Assessment & Plan (03/23/2023 12:21 PM CLOTHING MANAGER): Uses CPAP nightly and benefits from it Assessment & Plan (09/16/2022 1:04 PM CDT): Uses CPAP nightly and benefits from it Assessment & Plan (06/29/2022 1:10 PM CLOTHING MANAGER): Will continue with auto titrating CPAP set at 5-20 cm water pressure. Denied need for supplies. DME adapt Assessment & Plan (01/13/2022 7:01 AM CDT): Uses CPAP nightly and benefits from it Assessment & Plan (09/23/2021 3:21 PM CDT): Uses CPAP nightly and benefits from it Assessment & Plan (06/25/2021 2:55 PM CLOTHING MANAGER): Patient continue to wear her CPAP in auto titrating range of 5-15 cm water pressure while sleeping. Her DME is [facility] [facility]. The patient is aware of the recall in has registered her CPAP. The patient denies seeing any dark particles in her hose or water tank. Assessment & Plan (03/31/2021 12:42 PM CLOTHING MANAGER): Uses CPAP nightly and benefits it Assessment & Plan (09/30/2020 12:44 PM CDT): Uses CPAP nightly and benefits from it Assessment & Plan (03/31/2020 1:44 PM CLOTHING MANAGER): Uses CPAP nightly and benefits from it Assessment & Plan (09/24/2019 1:53 PM CDT): Uses CPAP nightly and benefits from it Assessment & Plan (03/21/2019 12:02 PM CLOTHING MANAGER): Using CPAP nightly and benefiting form it. Assessment & Plan (09/14/2018 8:52 AM CDT): Using CPAP nightly and benefiting form it. Morbid obesity with BMI of 40.0-44.9, adult 02/13 Assessment & Plan (09/17/2024 12:37 PM CDT): BMI Follow-up includes: exercise counseling. Assessment & Plan (03/21/2024 12:16 PM CLOTHING MANAGER): BMI Follow-up includes: exercise counseling. Assessment & Plan (09/27/2023 3:57 PM CDT): BMI Follow-up includes: exercise counseling. Assessment & Plan (03/23/2023 12:21 PM CLOTHING MANAGER): BMI Follow-up includes: exercise counseling. Assessment & Plan (09/16/2022 1:04 PM CDT): BMI Follow-up includes: exercise counseling. Assessment & Plan (03/09/2022 9:48 AM CDT): BMI Follow-up includes: exercise counseling Assessment & Plan (01/13/2022 7:01 AM CDT): BMI Follow-up includes: exercise counseling. Assessment & Plan (09/23/2021 3:21 PM CDT): BMI Follow-up includes: exercise counseling. Assessment & Plan (03/31/2021 12:42 PM CLOTHING MANAGER): BMI Follow-up includes: exercise counseling. Assessment & Plan (09/30/2020 12:44 PM CDT): BMI Follow-up includes: exercise counseling. Assessment & Plan (03/31/2020 1:44 PM CLOTHING MANAGER): BMI Follow-up includes: exercise counseling. Assessment & Plan (03/21/2019 12:03 PM CLOTHING MANAGER): BMI Follow-up includes: exercise counseling. Assessment & Plan (09/12/2018 1:27 PM CDT): BMI Follow-up includes: exercise counseling. Esophageal stricture 09/03/2015 Essential (primary) hypertension 09/03/2015 Assessment & Plan (09/17/2024 12:36 PM CDT): Stable on lisinopril hydrochlorothiazide Assessment & Plan (03/21/2024 12:15 PM CLOTHING MANAGER): Stable on lisinopril hydrochlorothiazide Assessment & Plan (09/27/2023 3:55 PM CDT): Stable on lisinopril hydrochlorothiazide Assessment & Plan (03/23/2023 12:20 PM CLOTHING MANAGER): Stable on lisinopril hydrochlorothiazide Assessment & Plan (09/16/2022 1:04 PM CDT): Stable on lisinopril hydrochlorothiazide Assessment & Plan (03/09/2022 9:47 AM CDT): Stable on lisinopril Assessment & Plan (01/13/2022 7:01 AM CDT): Stable on lisinopril Assessment & Plan (09/23/2021 3:21 PM CDT): Stable on lisinopril Assessment & Plan (03/31/2021 12:42 PM CLOTHING MANAGER): Stable on lisinopril Assessment & Plan (09/30/2020 12:43 PM CDT): Stable on lisinopril Assessment & Plan (03/31/2020 1:43 PM CLOTHING MANAGER): Stable on lisinopril Assessment & Plan (09/24/2019 1:52 PM CDT): Stable on lisinopril Assessment & Plan (03/21/2019 12:02 PM CLOTHING MANAGER): Stable on lisinopril Assessment & Plan (09/12/2018 1:26 PM CDT): Stable on lisinopril Gastro-esophageal reflux disease without esophag itis 09/03/2015 Assessment & Plan (09/17/2024 12:36 PM CDT): Stable on pantoprazole Assessment & Plan (03/21/2024 12:15 PM CLOTHING MANAGER): Stable on pantoprazole Assessment & Plan (09/27/2023 3:55 PM CDT): Stable on pantoprazole Assessment & Plan (03/23/2023 12:21 PM CLOTHING MANAGER): Stable on pantoprazole Assessment & Plan (09/16/2022 1:04 PM CDT): Stable on pantoprazole Assessment & Plan (03/09/2022 9:47 AM CDT): Stable on pantoprazole Assessment & Plan (09/23/2021 3:21 PM CDT): Stable on pantoprazole Assessment & Plan (03/31/2021 12:42 PM CLOTHING MANAGER): Stable on pantoprazole Assessment & Plan (09/30/2020 12:44 PM CDT): Stable on pantoprazole Assessment & Plan (03/31/2020 1:43 PM CLOTHING MANAGER): Stable on pantoprazole Assessment & Plan (09/24/2019 1:52 PM CDT): Stable on pantoprazole Assessment & Plan (03/21/2019 12:02 PM CLOTHING MANAGER): Stable on pantoprazole Assessment & Plan (09/12/2018 1:26 PM CDT): Stable on pantoprazole Migraines 09/03/2015 Assessment & Plan (09/17/2024 12:36 PM CDT): Stable on nortriptyline Assessment & Plan (03/21/2024 12:16 PM CLOTHING MANAGER): Stable on nortriptyline Assessment & Plan (09/27/2023 3:55 PM CDT): Stable on nortriptyline Assessment & Plan (03/23/2023 12:21 PM CLOTHING MANAGER): Stable on nortriptyline Assessment & Plan (09/16/2022 1:05 PM CDT): Stable on nortriptyline Peripheral neuropathy 09/03/2015 Assessment & Plan (09/17/2024 12:37 PM CDT): Stable on nortriptyline Assessment & Plan (03/21/2024 12:15 PM CLOTHING MANAGER): Stable on nortriptyline Assessment & Plan (09/27/2023 3:56 PM CDT): Stable on nortriptyline Assessment & Plan (03/23/2023 12:21 PM CLOTHING MANAGER): Stable on nortriptyline Assessment & Plan (09/16/2022 1:04 PM CDT): Stable on nortriptyline Assessment & Plan (03/09/2022 9:49 AM CDT): Stable on nortiptyline Assessment & Plan (01/13/2022 7:04 AM CDT): Stable on nortriptyline Assessment & Plan (09/23/2021 3:22 PM CDT): Stable on nortriptyline Assessment & Plan (03/31/2021 12:42 PM CLOTHING MANAGER): Stable on nortriptyline Assessment & Plan (09/30/2020 12:44 PM CDT): Stable on nortriptyline Assessment & Plan (03/31/2020 1:43 PM CLOTHING MANAGER): Stable on nortriptyline Assessment & Plan (09/27/2019 8:36 AM CDT): Stable nortriptyline Assessment & Plan (05/24/2019 8:30 AM CLOTHING MANAGER): Still not controlled on 100 mg of nortriptyline. Patient requested to try higher dose. Okay to take 75 mg 2 capsules q.h.s. I discussed with patient if will not be effective then can consider decreasing nortriptyline to baseline does and adding Lyrica. Assessment & Plan (03/22/2019 8:30 AM CLOTHING MANAGER): Increase nortriptyline to 100 mg every day. Assessment & Plan (09/12/2018 1:26 PM CDT): Stable on nortriptyline Resolved Problems Problem Noted Date Diagnosed Date Resolved Date Abscess of right foot 05/24/20192019 Assessment & Plan (05/24/2019 8:29 AM CLOTHING MANAGER): Well-healing. Finish Bactrim. Call back if foot will not completely heal after finishing antibiotic. Will need referral to computer lab para professional. Chronic left shoulder pain 03/22/2019 1 05/31/2019 Assessment & Plan (03/22/2019 8:40 AM CLOTHING MANAGER): Continue shoulder stretches BMI 40.0-44.9, adult 02/23/2017 [...] on file Legal Sex Female 12:21 AM CLOTHING MANAGER Gender Identity Not on file Sexual [...] LDL-C. Matt WISEMAN et al. CARLI. 2013;310(19): 3326-0891 (http://education.[employer]/faq/ACQ212) Chol/HDL ratio 2.8 <5.0 (calc) [facility] [...] BLOOD ORDERABLES Fin al Result [facility] [address] [id number] * Comprehensive metabolic panel (09/18/2024 11:02 AM [...] ORDERABLES Fin al Result SH[facility] [address] [id number] * Colonoscopy (08/16/2024 6:55 AM CDT) Anatomical Region Laterality Modality Other Historical Provider MD ENDOSCOPY PROCEDURES Susie l Result from Last 3 Months or Most Recently Relevant to Health Maintenance Insurance [facility] Care Teams Repair Department Manager Relationship Specialty Start Date End Date Arvind Billingsley MD [address] [place] [address] PCP - General 05/15/17 Jeanne Blackwell MD [address] [address] Referring Physician Gynecology 11/11/22
--- OUTSIDE RECORDS SUMMARY | 2024-12-10 00:50 | XMS_ITS | Encounter Summary ---
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
--- OUTSIDE RECORDS SUMMARY | 2024-12-10 00:50 | XMS_ITS | Encounter Summary ---
Author Organization [facility] Address [address] [place] [address] Care Team Providers Care Application Support Intern Name Role Phone Arvind Billingsley MD Primary Care Provider [phone] Encounter Details Date Type Department Care Team (Latest Contact Info) Description 03/21/2018 Abstract [facility] , Piedad Tamez MD Social [...] on filedocumented in this encounter Care Teams Application Support Intern Relationship Specialty Start Date End Date Arvind Billingsley MD [address] [place] [address] PCP - General INTERNAL MEDICINE 12/24/21 documented as of this encounter
--- OUTSIDE RECORDS SUMMARY | 2024-12-10 00:50 | XMS_ITS | Encounter Summary ---
Author Organization [facility] Care Team Providers Care Business Technology Analyst Name Role Phone Arvind Billingsley MD Primary Care Provider + Arvind Billingsley MD Primary Care Provider + Jeanne Blackwell MD Unavailable [phone] Encounter Details Date Type Department Care Team (Latest Contact Info) Description 01/28/2016 Orders Only [facility] ProviderTavia MD [address] [place] [id number] Social History Tobacco Use Types Packs/Day Years Used Date Smoking Tobacco: Never Comments Unknown Sex and Gender Information Value Date Recorded Sex Assigned at Not on file 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
--- OUTSIDE RECORDS SUMMARY | 2024-12-10 00:50 | XMS_ITS | Clinical Summary ---
Author Organization [place] [id number] [facility] Address [address] [place] [address] Care Team Providers Care Waterworks Pump Station Operator Name Role Phone Arvind Billingsley MD Primary Care Provider + Jeanne Blackwell MD Unavailable [phone] Allergies Active Allergy Reactions Criticality Noted Date [...] atorvastatin Assessment & Plan (03/21/2024 12:15 PM VENEER STOCK LAYER): Stable on atorvastatin Assessment & Plan (09/27/2023 3:56 PM CDT): Stable on atorvastatin Assessment & Plan (03/24/2023 1:31 PM VENEER STOCK LAYER): Stable on atorvastatin Postoperative stitch abscess 03/14/2022 [...] cane. Transition to outpatient physical therapy at [facility] in [place]. Follow-up in 4 weeks for repeat evaluation [...] it Assessment & Plan (07/05/2024 1:10 PM VENEER STOCK LAYER): Due to ongoing symptoms in the slightly elevated AHI, I have increased the pressure to 8-15 cm water pressure. Denied need for supplies. DME adapt Assessment & Plan (03/21/2024 12:15 PM VENEER STOCK LAYER): Uses CPAP nightly and benefits from it Assessment & Plan (09/27/2023 3:55 PM CDT): Uses CPAP nightly and benefits from it Assessment & Plan (06/30/2023 1:21 PM VENEER STOCK LAYER): Due to continued symptoms, the patient will continue CPAP at 5-15 cm water pressure. Denied need for supplies. DME adapt Assessment & Plan (03/23/2023 12:21 PM VENEER STOCK LAYER): Uses CPAP nightly and benefits from it Assessment & Plan (09/16/2022 1:04 PM CDT): Uses CPAP nightly and benefits from it Assessment & Plan (06/29/2022 1:10 PM VENEER STOCK LAYER): Will continue with auto titrating CPAP set at 5-20 cm water pressure. Denied need for supplies. DME adapt Assessment & Plan (01/13/2022 7:01 AM CDT): Uses CPAP nightly and benefits from it Assessment & Plan (09/23/2021 3:21 PM CDT): Uses CPAP nightly and benefits from it Assessment & Plan (06/25/2021 2:55 PM VENEER STOCK LAYER): Patient continue to wear her CPAP in auto titrating range of 5-15 cm water pressure while sleeping. Her DME is [facility]. The patient is aware of the recall in has registered her CPAP. The patient denies seeing any dark particles in her hose or water tank. Assessment & Plan (03/31/2021 12:42 PM VENEER STOCK LAYER): Uses CPAP nightly and benefits it Assessment & Plan (09/30/2020 12:44 PM CDT): Uses CPAP nightly and benefits from it Assessment & Plan (03/31/2020 1:44 PM VENEER STOCK LAYER): Uses CPAP nightly and benefits from it Assessment & Plan (09/24/2019 1:53 PM CDT): Uses CPAP nightly and benefits from it Assessment & Plan (03/21/2019 12:02 PM VENEER STOCK LAYER): Using CPAP nightly and benefiting form it. Assessment & Plan (09/14/2018 8:52 AM CDT): Using CPAP nightly and benefiting form it. Morbid obesity with BMI of 40.0-44.9, adult 02/13 Assessment & Plan (09/17/2024 12:37 PM CDT): BMI Follow-up includes: exercise counseling. Assessment & Plan (03/21/2024 12:16 PM VENEER STOCK LAYER): BMI Follow-up includes: exercise counseling. Assessment & Plan (09/27/2023 3:57 PM CDT): BMI Follow-up includes: exercise counseling. Assessment & Plan (03/23/2023 12:21 PM VENEER STOCK LAYER): BMI Follow-up includes: exercise counseling. Assessment & Plan (09/16/2022 1:04 PM CDT): BMI Follow-up includes: exercise counseling. Assessment & Plan (03/09/2022 9:48 AM CDT): BMI Follow-up includes: exercise counseling Assessment & Plan (01/13/2022 7:01 AM CDT): BMI Follow-up includes: exercise counseling. Assessment & Plan (09/23/2021 3:21 PM CDT): BMI Follow-up includes: exercise counseling. Assessment & Plan (03/31/2021 12:42 PM VENEER STOCK LAYER): BMI Follow-up includes: exercise counseling. Assessment & Plan (09/30/2020 12:44 PM CDT): BMI Follow-up includes: exercise counseling. Assessment & Plan (03/31/2020 1:44 PM VENEER STOCK LAYER): BMI Follow-up includes: exercise counseling. Assessment & Plan (03/21/2019 12:03 PM VENEER STOCK LAYER): BMI Follow-up includes: exercise counseling. Assessment & Plan (09/12/2018 1:27 PM CDT): BMI Follow-up includes: exercise counseling. Esophageal stricture 09/03/2015 Essential (primary) hypertension 09/03/2015 Assessment & Plan (09/17/2024 12:36 PM CDT): Stable on lisinopril hydrochlorothiazide Assessment & Plan (03/21/2024 12:15 PM VENEER STOCK LAYER): Stable on lisinopril hydrochlorothiazide Assessment & Plan (09/27/2023 3:55 PM CDT): Stable on lisinopril hydrochlorothiazide Assessment & Plan (03/23/2023 12:20 PM VENEER STOCK LAYER): Stable on lisinopril hydrochlorothiazide Assessment & Plan (09/16/2022 1:04 PM CDT): Stable on lisinopril hydrochlorothiazide Assessment & Plan (03/09/2022 9:47 AM CDT): Stable on lisinopril Assessment & Plan (01/13/2022 7:01 AM CDT): Stable on lisinopril Assessment & Plan (09/23/2021 3:21 PM CDT): Stable on lisinopril Assessment & Plan (03/31/2021 12:42 PM VENEER STOCK LAYER): Stable on lisinopril Assessment & Plan (09/30/2020 12:43 PM CDT): Stable on lisinopril Assessment & Plan (03/31/2020 1:43 PM VENEER STOCK LAYER): Stable on lisinopril Assessment & Plan (09/24/2019 1:52 PM CDT): Stable on lisinopril Assessment & Plan (03/21/2019 12:02 PM VENEER STOCK LAYER): Stable on lisinopril Assessment & Plan (09/12/2018 1:26 PM CDT): Stable on lisinopril Gastro-esophageal reflux disease without esophag itis 09/03/2015 Assessment & Plan (09/17/2024 12:36 PM CDT): Stable on pantoprazole Assessment & Plan (03/21/2024 12:15 PM VENEER STOCK LAYER): Stable on pantoprazole Assessment & Plan (09/27/2023 3:55 PM CDT): Stable on pantoprazole Assessment & Plan (03/23/2023 12:21 PM VENEER STOCK LAYER): Stable on pantoprazole Assessment & Plan (09/16/2022 1:04 PM CDT): Stable on pantoprazole Assessment & Plan (03/09/2022 9:47 AM CDT): Stable on pantoprazole Assessment & Plan (09/23/2021 3:21 PM CDT): Stable on pantoprazole Assessment & Plan (03/31/2021 12:42 PM VENEER STOCK LAYER): Stable on pantoprazole Assessment & Plan (09/30/2020 12:44 PM CDT): Stable on pantoprazole Assessment & Plan (03/31/2020 1:43 PM VENEER STOCK LAYER): Stable on pantoprazole Assessment & Plan (09/24/2019 1:52 PM CDT): Stable on pantoprazole Assessment & Plan (03/21/2019 12:02 PM VENEER STOCK LAYER): Stable on pantoprazole Assessment & Plan (09/12/2018 1:26 PM CDT): Stable on pantoprazole Migraines 09/03/2015 Assessment & Plan (09/17/2024 12:36 PM CDT): Stable on nortriptyline Assessment & Plan (03/21/2024 12:16 PM VENEER STOCK LAYER): Stable on nortriptyline Assessment & Plan (09/27/2023 3:55 PM CDT): Stable on nortriptyline Assessment & Plan (03/23/2023 12:21 PM VENEER STOCK LAYER): Stable on nortriptyline Assessment & Plan (09/16/2022 1:05 PM CDT): Stable on nortriptyline Peripheral neuropathy 09/03/2015 Assessment & Plan (09/17/2024 12:37 PM CDT): Stable on nortriptyline Assessment & Plan (03/21/2024 12:15 PM VENEER STOCK LAYER): Stable on nortriptyline Assessment & Plan (09/27/2023 3:56 PM CDT): Stable on nortriptyline Assessment & Plan (03/23/2023 12:21 PM VENEER STOCK LAYER): Stable on nortriptyline Assessment & Plan (09/16/2022 1:04 PM CDT): Stable on nortriptyline Assessment & Plan (03/09/2022 9:49 AM CDT): Stable on nortiptyline Assessment & Plan (01/13/2022 7:04 AM CDT): Stable on nortriptyline Assessment & Plan (09/23/2021 3:22 PM CDT): Stable on nortriptyline Assessment & Plan (03/31/2021 12:42 PM VENEER STOCK LAYER): Stable on nortriptyline Assessment & Plan (09/30/2020 12:44 PM CDT): Stable on nortriptyline Assessment & Plan (03/31/2020 1:43 PM VENEER STOCK LAYER): Stable on nortriptyline Assessment & Plan (09/27/2019 8:36 AM CDT): Stable nortriptyline Assessment & Plan (05/24/2019 8:30 AM VENEER STOCK LAYER): Still not controlled on 100 mg of nortriptyline. Patient requested to try higher dose. Okay to take 75 mg 2 capsules q.h.s. I discussed with patient if will not be effective then can consider decreasing nortriptyline to baseline does and adding Lyrica. Assessment & Plan (03/22/2019 8:30 AM VENEER STOCK LAYER): Increase nortriptyline to 100 mg every day. Assessment & Plan (09/12/2018 1:26 PM CDT): Stable on nortriptyline Resolved Problems Problem Noted Date Diagnosed Date Resolved Date Abscess of right foot 05/24/20192019 Assessment & Plan (05/24/2019 8:29 AM VENEER STOCK LAYER): Well-healing. Finish Bactrim. Call back if foot will not completely heal after finishing antibiotic. Will need referral to channel specialist. Chronic left shoulder pain 03/22/2019 1 05/31/2019 Assessment & Plan (03/22/2019 8:40 AM VENEER STOCK LAYER): Continue shoulder stretches BMI 40.0-44.9, adult 02/23/2017 019 Assessment & Plan (09/12/2018 1:28 PM CDT): Stress weight loss and exercise. Encounters Date Type Department Care Team Description 10/24/2024 Telephone [facility] Medical [facility] Primary Care [address] [place] [address] Arvind Billingsley MD Med Refill 10/18/2024 10:15 AM CDT Office Visit [facility] Medical [facility] [address] [place] [address] Allyssa Wood NP Obstructive sleep apnea (Primary Dx) 10/09/2024 Results Follow-Up [facility] Primary Care [address] [place] [id number] Arvind Billingsley MD Screening Mammogram Bilateral W Reagan 10/06/2024 11:00 AM CDT - 10/06/2024 11:59 PM CDT Hospital Encounter [facility] [address] [place] [address] Screening mammogram, encounter for Discharge Disposition: Discharge to home or self care 10/02/2024 Telephone [facility] Primary Care [address] [place] [address] Arvind Billingsley MD Authorization/Certifi cation; Med Refill 09/20/2024 12:45 PM CDT Office Visit [facility] Primary Care [address] [place] [address] Arvind Billingsley MD Essential (primary) hypertension (Primary Dx); Pure hypercholesterolemia; Gastro-esophageal reflux disease without esophagitis; Migraine without aura and without status migrainosus, not intractable; Obstructive sleep apnea; Idiopathic peripheral neuropathy; Morbid obesity with BMI of 40.0-44.9, adult (HCC); Vertigo 09/19/2024 Results Follow-Up [facility] Primary Care [address] [place] [address] Arvind Billingsley MD Comprehensive metabolic panel, Lipid [...] on file Legal Sex Female 12:21 AM VENEER STOCK LAYER Gender Identity Not on file Sexual Orientation [...] LDL-C. Matt SS et al. CARLI. 2013;310(19): 6635-3451 (http://[email or web address]/faq/[email or web address]) Chol/HDL ratio 2.8 <5.0 (calc) [facility] [...] BLOOD ORDERABLES Fin al Result [facility] [address] [address] * Comprehensive metabolic panel (09/18/2024 11:02 AM [...] ORDERABLES Fin al Result [facility] [address] [place] [address] * Colonoscopy (08/16/2024 6:55 AM CDT) Anatomical Region Laterality Modality Other us Historical Provider ENDOSCOPY PROCEDURES Susie l Result from Last 3 Months or Most Recently Relevant to Health Maintenance [place] [address] [facility] Care Teams Waterworks Pump Station Operator Relationship Specialty Start Date End Date Arvind Billingsley MD [address] [place] [address] PCP - General 05/15/17 Jeanne Blackwell MD [address] [address] Referring Physician Gynecology 11/11/22
--- OUTSIDE RECORDS SUMMARY | 2024-12-10 00:50 | XMS_ITS | Clinical Summary ---
Author Organization [facility] Address [facility] [address] Care Team Providers Care Cloth Colors Examiner Name Role Phone Arvind Billingsley MD Primary Care Provider [phone] Allergies Active Allergy Reactions Criticality Noted Date [...] issues. Assessment & Plan (04/25/2022 8:47 PM CLINICAL STUDY MANAGER): Continue with progressive range of motion and [...] cane. Transition to outpatient physical therapy at [facility] in [place]. Follow-up in 4 weeks for repeat evaluation [...] knee arthroplasty. We will work with the shoply robot support line to see if we [...] interfering with her activities of daily living [id number] on x-ray We discussed standard instrumentation, patient [...] Encounters Date Type Department Care Team Description 12/06/2024 9:39 AM CDT - 12/06/2024 11:59 PM CDT Hospital Encounter [facility] [place] [address] [place] [address] Yael Crawford MD Dichsen, Stacie L, PT Discharge Disposition: Home or Self Care (Routine Discharge) 12/06/2024 Travel 10/25/2024 10:56 AM CDT - 10/25/2024 11:59 PM CDT Hospital Encounter [facility] [place] [address] Jeanne Blackwell MD Discharge Disposition: Home or Self Care (Routine Discharge) 10/25/2024 9:25 AM CDT - 10/25/2024 10:55 AM CDT Hospital Encounter [facility] Outpatient [facility] [place] [address] Yael [place] MD Dichsen, Stacie L, PT Discharge Disposition: Home or Self Care (Routine Discharge) 10/25/2024 Travel 09/26/2024 6:26 PM CDT - 09/26/2024 11:59 PM CDT Hospital Encounter [facility] [address] [place] [address] Candi Meza MD Discharge Disposition: Home or Self Care (Routine Discharge) 09/26/2024 Orders Only [facility] [address] [place] [address] Candi Meza MD 09/13/2024 10:24 AM CDT - 09/13/2024 11:59 PM CDT Hospital Encounter [facility] [place] [place] [address] Yael Crawford MD Dichsen, Stacie L, PT [...] 08/19/2022 1:37 PM CDT Plan of Treatment Health Maintenance Due [...] 02/11/2021, 05/23/2020, Additional history exists PHQ-2 (Physician [place]) 05/16/2024 Mammogram Screening 10/06/2026 10/06/2024, 08/25/2023, 08/19/2022, [...] Oh RN Medical Devices Implanted Type Area Director Of Market Analysis Device Identifier Shelf Expiration Date Model / Serial / Lot Component Femoral Triathlon [employer] - [id number] Implanted:Qty : 1 on 02/02/2022 by Jerry Dial DO at [facility] Knee Components Left: Femur [employer] DES[employer]REE [id number] 12/24/2026 5517-F-4 01 / / [id number] Baseplate Tibial Triathlon 4 Knee Tritanium - [id number] Implanted:Qty : 1 on 02/02/2022 by Jerry Dial DO at [facility] Knee Components Left: Tibia [employer] [id number] 10/07/2026 5536-B-4 00 / / [id number] Component Patellar 9mm 29mm Asymmetric Triathlon Tritanium Metal Knee Sterile - [id number] Implanted:Qty : 1 on 02/02/2022 by Jerry Dial DO at [facility] Patella Left: Patella [employer] [id number] 12/23/2025 5552-L-2 99 / / [id number] Triathlon X3 Tibial Bearing Insert- Cs Implanted:Qty : 1 on 02/02/2022 by Jerry Dial DO at [facility] Left: Tibia [id number] 10/18/2026 5531-G-4 09-E / / [id number] Procedures [...] 2:48 PM Narrative 10/26/2024 3:01 PM CDT [address] [address] EXAMINATION: Ultrasound pelvis EXAM DATE/TIME: 10/25/2024 11:10 [...] left ovary is not visualized. Procedure Note Wyatt, Roberto Perez MD - 10/26/[address] [address] EXAMINATION: Ultrasound pelvis EXAM DATE/TIME: 10/25/2024 11:10 [...] By: Roberto Garcia MD, 10/26/2024 2:48 PM Jeanne Blackwell MD ULTRASOUND Final Res ult * (ABNORMAL) URINE BACTERIA CULTURE (09/26/2024 6:26 PM CDT) SPEC DESCRIPTION URINE, UNSPECIFIED 09/26/2024 6:27 PM CDT [facility] SPECIAL REQUESTS NO SPECIAL REQUEST 09/26/2024 6:27 PM CDT [facility] CULTURE RESULT 10,000-49,000 COL/ML ENTEROCOCCUS SPECIES (A) 09/29/2024 7:40 AM CDT [facility] URINE SPECIMEN / Unknown 09/26/2024 6:26 PM CDT 09/26/2024 6:28 PM CDT Narrative Organism Antibiotic Method Susceptibility Enterococcus species AMPICILLIN DARIAN (VITEK) <=2: Sensitive Enterococcus species NITROFURANTOIN DARIAN (VITEK) <=16: Sensitive Enterococcus species GENT. SYNERGY SCREEN DARIAN (VITEK) Sensitive Enterococcus species PENICILLIN G DARIAN (VITEK) 8: Sensitive Candi Meza MD MICROBIOLOGY - GENERAL ORDERABLES Final Result [facility] [address] [place] [address], [place] [phone] [facility] [address] [place] [address], [place] [phone] * (ABNORMAL) URINALYSIS, AUTO, COMPLETE (09/26/2024 6:26 PM CDT) COLOR (U) YELLOW 09/26/2024 6:41 PM CDT [facility] TRANSPARENCY HAZY 09/26/2024 6:41 PM CDT [facility] SPECIFIC GRAVITY (U) 1.025 1.000 - 1.030 09/26/2024 6:41 PM CDT [facility] U PH 6.0 5.0 - 9.0 09/26/2024 6:41 PM T [facility] LEUKOCYTES (U) TRACE(A) NEGATIVE 09/26/2024 6:41 PM CDT [facility] NITRITES NEGATIVE NEGATIVE 09/26/2024 6:41 PM T [facility] PROTEIN RANDOM (U) NEGATIVE NEGATIVE 09/26/2024 6:41 PM T [facility] GLUCOSE (U) NEGATIVE NEGATIVE 09/26/2024 6:41 PM T [facility] KETONES MG/DL (U) TRACE(A) NEGATIVE 09/26/2024 6:41 PM T [facility] BILIRUBIN (U) NEGATIVE NEGATIVE 09/26/2024 6:41 PM T [facility] BLOOD (U) TRACE(A) NEGATIVE 09/26/2024 6:41 PM T [facility] WBC/HPF 10-25 0 - 5 /HPF 09/26/2024 6:41 PM T [facility] RBC/HPF 0-5 0 - 5 /HPF 09/26/2024 6:41 PM T [facility] EPI/HPF FEW /HPF 09/26/2024 6:41 PM T [facility] BACTERIA (U) FEW /HPF 09/26/2024 6:41 PM T [facility] URINE SPECIMEN / Unknown 09/26/2024 6:26 PM CDT us Candi Meza MD URINE ORDERABLES Final Result [facility] [address] [place] [address], [place] [phone] from Last 3 Months Insurance [employer] Advance Directives * Full Code (Latest Code Status on File) Date Activated Date Inactivated Comments 02/04/2022 10:18 AM * Full Code Date Activated Date Inactivated Comments 02/02/2022 6:23 PM 02/03/2022 5:29 PM Care Teams Cloth Colors Examiner Relationship Specialty Start Date End Date Arvind Billingsley MD [address] [place] [address] PCP - General INTERNAL MEDICINE 12/24/21
[2024-12-10 06:05] VITALS: BP 133/81; PULSE 95; TEMP 36.8; O2SAT 99
[2024-12-10] MEDS: ACETAMINOPHEN 500 MG TABLET 1000 MG PO (06:20)
[2024-12-10] MEDS: LACTATED RINGERS 1,000 ML 30 ML IV CONT (06:25)
--- NOTE | 2024-12-10 06:57 | P.PNAN_ITS ---
Anes - Initial Pre Proc Eval Procedure: Operation Date: 12/10/24 07:30 Proposed Procedures p Hysteroscopy, Dilation and Curettage - Jeanne Blackwell MD Date/Time: 12/10/24 06:57 Surgeon: Jeanne Blackwell MD Pre Op Diagnosis: post menopausal bleeding Patient Data Age: 59 Gender: F Height: 1.68 m Weight: 114.3 kg Last Vital Signs Temp 36.8 C 12/10/24 06:05 Pulse 95 12/10/24 06:05 BP 133/81 12/10/24 06:05 Pulse Ox 99 12/10/24 06:05 O2 Del Method Room Air 12/10/24 06:05 Allergies Allergy/AdvReac Type Severity Reaction Status Date / Time Penicillins Allergy Mild Rash Unverified 12/10/24 06:15 Home Medications ?Medication ?Instructions ?Recorded ?Confirmed ?Type alpha lipoic acid 600 mg capsule 600 mg PO HS 12/03/24 12/03/24 History aspirin 81 mg tablet 81 mg PO Q48H 12/03/24 12/10/24 History atorvastatin 10 mg tablet 10 mg PO HS 12/03/24 12/03/24 History inulin 2 gram chewable tablet 4 g PO HS 12/03/24 12/03/24 History ([place]' Fiber Good) lisinopril 20 1 tablet PO HS 12/03/24 12/03/24 History mg-hydrochlorothiazide 25 mg tablet magnesium citrate 34 mg chewable 34 mg PO HS PRN constipation 12/03/24 12/04/24 History tablet nortriptyline 75 mg capsule 150 mg PO HS 12/03/24 12/03/24 History pantoprazole 40 mg tablet,delayed 40 mg PO HS 12/03/24 12/03/24 History release tirzepatide (weight loss) 5 mg/0.5 5 mg subcut WEEKLY 12/03/24 12/10/24 History mL subcutaneous pen injector (Zepbound) Patient hx anesthesia problems: none Family hx anesthesia problems: none Results Review: All pre-operative results and documents have been reviewed as part of the pre- operative evaluation. [facility] Social History Social History Smoking status: Never smoker Living arrangements: with family Spiritual care concerns: No Anes - Eval Final PreProcedure Day of Procedure 12/10/24 06:57 Patient weight: morbidly obese Heart: regular rate and rhythm Lungs: clear to auscultation Airway: Mallampati scale class II Neurological: alert and oriented Last oral intake: >/= 8 hours ASA classification: III Emergent: no Anesthetic plan: proceed Anesthesia type and monitoring: general GIVS and standard monitoring Results Review: All pre-operative results and documents have been reviewed as part of the pre- operative evaluation. Informed Consent: The patient's anesthetic plan and its attendant risks and benefits were discussed with the patient/family/POA. Questions were solicited and answers provided to the satisfaction of the patient/family/POA.
--- NOTE | 2024-12-10 07:08 | WPDHPUPDATE1 ---
History and Physical Update Update Date/Time: 12/10/24 07:08 History and Physical has been reviewed, including an updated exam of the patient. There are NO changes in the patient's condition. Risks, benefits, and alternatives have been discussed and questions answered. Patient agrees to proceed with procedure.
--- NOTE | 2024-12-10 07:08 | PM.HPGS ---
History of Present Illness History of Present Illness Consent: Risks, benefits, and alternatives have been discussed and questions answered. Patient agrees to proceed with procedure. Chief complaint: post menopausal bleeding Narrative: Candi Rodríguez is a 59 year old female with postmenopausal bleeding. Patient had 3 weeks spotting in September followed by 2 weeks of spotting in November. Pelvic ultrasound performed in October revealed a thickened endometrium at 15mm. It was recommended D&C hysteroscopy risks of infection, bleeding perforation, and possible pathology are reviewed. Patient voices understanding and agrees to proceed. Review of Systems Review of Systems: not repeated day of surgery; patient states no changes in status PMFSH Past Medical History Medical History (Updated 12/10/24 @ 07:12 by Jeanne Blackwell MD) (normal spontaneous vaginal delivery) X3 Idiopathic peripheral neuropathy Migraine Chronic hypertension Surgical History Surgical History (Updated 12/10/24 @ 07:11 by Jeanne Blackwell MD) Status post total left knee replacement Status post laparoscopic cholecystectomy Social History Social History Smoking status: Never smoker Living arrangements: with family Spiritual care concerns: No Meds Home Medications and Allergies Home Medications ?Medication ?Instructions ?Recorded ?Confirmed ?Type alpha lipoic acid 600 mg capsule 600 mg PO HS 12/03/24 12/03/24 History aspirin 81 mg tablet 81 mg PO Q48H 12/03/24 12/10/24 History atorvastatin 10 mg tablet 10 mg PO HS 12/03/24 12/03/24 History inulin 2 gram chewable tablet 4 g PO HS 12/03/24 12/03/24 History ([place] Fiber Good) lisinopril 20 1 tablet PO HS 12/03/24 12/03/24 History mg-hydrochlorothiazide 25 mg tablet magnesium citrate 34 mg chewable 34 mg PO HS PRN constipation 12/03/24 12/04/24 History tablet nortriptyline 75 mg capsule 150 mg PO HS 12/03/24 12/03/24 History pantoprazole 40 mg tablet,delayed 40 mg PO HS 12/03/24 12/03/24 History release tirzepatide (weight loss) 5 mg/0.5 5 mg subcut WEEKLY 12/03/24 12/10/24 History mL subcutaneous pen injector (Zepbound) Allergies Allergy/AdvReac Type Severity Reaction Status Date / Time Penicillins Allergy Mild Rash Unverified 12/10/24 06:15 Vital Signs Vital Signs - 24 hr 12/10/24 06:05 Temperature 98.2 F Pulse Rate 95 Blood Pressure 133/81 Pulse Oximetry 99 Oxygen Delivery Room Air Exam Const: General: healthy appearing and alert Orientation/consciousness: patient oriented x3 Resp: Effort & Inspection: normal respiratory effort : External Female Exam: normal external appearance Speculum Exam - Vagina: normal appearance of the vagina and vaginal bleeding Speculum Exam - Cervix: normal appearance of the cervix Bimanual exam- vagina & uterus: uterine size normal and consistency normal Bimanual Exam- Adnexa, other: normal adnexae and No adnexal tenderness Neuro: General: patient oriented x3 Assessment and Plan Assessment and plan (1) Post-menopausal bleeding: Code(s): N95.0 - Postmenopausal bleeding Status: Acute Assessment and Plan: Plan to proceed with D&C hysteroscopy
--- NOTE | 2024-12-10 07:52 | S_PTH ---
PATIENT: Candi Hernández LOC: [facility] U#:[id number] AGE/SX: 59/F ROOM: RE12/10/[address]: Jeanne Blackwell MD : 1965 BED: DIS: 12/10/2024 SPEC #: [id number] RECD: 12/10/24 09:00 STATUS: LYNDSAY REQ #: [id number] GERONIMO: 12/10/24 07:[address]: Jeanne Blackwell DEPT: [facility] Surgical RECD BY: Emily Childress ENTERED: 12/10/24 09:00 SP TYPE: Surgical OTHR DR: Arvind Billingsley, Tissues: A - Endometrial Curettings Procedures: Hematoxylin and Eosin Stain Gross and Microscopic Level 4
--- NOTE | 2024-12-10 07:55 | P.OP_ITS ---
Procedure Note - Detailed Date of Procedure 12/10/24 Pre-op Diagnosis post menopausal bleeding Post-op Diagnosis Same Procedure Performed D&C hysteroscopy with resection of polyp Surgeon Jeanne Blackwell MD Anesthesia MAC Findings Uterus sounds to 8cm. There is a large polyp from right sidewall. 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 There are scattered calcifications. Description of Procedure The patient was taken to the operating room and placed under anesthesia in the dorsal lithotomy position. She was prepped and draped in the usual sterile fashion. [place] speculum was placed in the vagina and the cervix was grasped on the anterior lip with a tenaculum. The uterus is sounded to 8cm. The diagnostic hysteroscope was placed and with the above-stated findings the small Aveta resection device is placed. Under direct visualization the large polyp was removed. In addition the posterior wall thickened area was removed. The hysteroscope was then removed and the sharp curette was used to curette the endometrium until a good uterine cry was noted in all areas. All instruments are removed. Sponge, needle, and instrument counts are correct per the OR staff. The patient was awakened from anesthesia and taken to recovery in stable condition. Estimated Blood Loss 5 Drains No Packing No Pathology Yes (Endometrial curettings) Complications No immediate complications Condition Stable Disposition PACU
[2024-12-10 07:59] VITALS: BP 119/60; PULSE 79; RESP 16; O2SAT 97
[2024-12-10 08:30] VITALS: BP 119/71; PULSE 72
[2024-12-10 09:00] VITALS: BP 117/65; PULSE 67
== END 2024-12-10 09:12 | disposition home or self-care (01) ==
PROVIDERS: PCP Internal Medicine; Visit Provider Obstetrics & Gynecology Gynecology
PROC: 0U5B8ZZ Destruction of Endometrium, Via Natural or Artificial Opening Endoscopic (ICD-10-PCS; CPT 58563; principal; 2024-12-10 07:30)
DX: N84.0 Polyp of corpus uteri (principal); I10 Essential (primary) hypertension; G60.9 Hereditary and idiopathic neuropathy, unspecified; E66.01 Morbid (severe) obesity due to excess calories; Z68.41 Body mass index [BMI] 40.0-44.9, adult; Z79.899 Other long term (current) drug therapy; Z79.82 Long term (current) use of aspirin; Z79.4 Long term (current) use of insulin; Z79.85 Long-term (current) use of injectable non-insulin antidiabetic drugs; Z98.890 Other specified postprocedural states; Z90.49 Acquired absence of other specified parts of digestive tract
CPT/HCPCS: 58558; 88305; A9270; J1885; J2003; J2250; J2704; J3010; J7120